=== PATIENT | male | born 1970 | race African-American/Black ===

== ENCOUNTER 2018-11-30 10:52 | Emergency (ER) | payer SELFPAY ==
[~2018-11-30] VITALS: Ht 180.3 cm; Wt 75.0 kg
[2018-11-30 10:59] VITALS: BP 157/109
== END 2018-11-30 15:01 | disposition left against medical advice (07) ==
LOC: ER 10:52
DX: Z53.21 Procedure and treatment not carried out due to patient leaving prior to being seen by health care provider (principal); R07.89 Other chest pain
CPT/HCPCS: 93005

== ENCOUNTER 2018-12-26 10:52 | Emergency (ER) | payer MEDICAID ==
[~2018-12-26] VITALS: Ht 180.3 cm; Wt 77.0 kg
[2018-12-26] MEDS ORDERED: HYDROCODONE/ACETAMINOPHEN 5/325MG TABLET PO STA (13:00)
[2018-12-26 14:16] VITALS: BP 124/86
== END 2018-12-26 14:17 | disposition home or self-care (01) ==
LOC: ER 11:18
DX: M54.5 Low back pain (principal); M54.2 Cervicalgia; M25.512 Pain in left shoulder; M25.511 Pain in right shoulder; V49.59XA Passenger injured in collision with other motor vehicles in traffic accident, initial encounter; Y93.89 Activity, other specified; Y92.410 Unspecified street and highway as the place of occurrence of the external cause
CPT/HCPCS: 72100; 73030; 99283

== ENCOUNTER 2019-08-21 12:44 | Emergency (ER) | payer MEDICAID ==
[~2019-08-21] VITALS: Ht 185.4 cm; Wt 71.0 kg
[2019-08-21] MEDS ORDERED: CLONIDINE 0.2MG TABLET PO ONE ×2 (13:30→14:00)
[2019-08-21] MEDS ORDERED: AMLODIPINE 5MG TABLET PO ONE (14:00)
[2019-08-21 14:15] VITALS: BP 188/90
[2019-08-21 14:55] LABS: CHLORIDE 104 mEq/L (98-107)
[2019-08-21 15:32] LABS: BASOPHILS % 0.6 % (0.0-2.0); EOSINOPHILS % 0.5 % (0.0-5.0); HEMATOCRIT. 41.7 % (42.0-52.0); HEMOGLOBIN. 14.1 g/dL (14.0-18.0); LYMPHOCYTES % 21.7 % (20.0-50.0); MEAN CORPUSCULAR HEMOGLOBIN 32.4 pg (28.0-32.0); MEAN PLATELET VOLUME 10.5 fl (7.4-10.4); MONOCYTES % 3.8 % (2.0-8.0); NEUTROPHILS % 73.4 % (40.0-76.0); PLATELET 142 x1000/uL (130-400); RED BLOOD CELL COUNT 4.35 mill/uL (4.7-6.1); RED CELL DISTRIBUTION WIDTH 14.6 % (11.6-14.6)
== END 2019-08-21 14:50 | disposition left against medical advice (07) ==
LOC: ER 13:06 → CANBEDREQ 18:38
DX: I13.2 Hypertensive heart and chronic kidney disease with heart failure and with stage 5 chronic kidney disease, or end stage renal disease (principal); I50.43 Acute on chronic combined systolic (congestive) and diastolic (congestive) heart failure; I50.84 End stage heart failure; N18.6 End stage renal disease; Z91.14 Patient's other noncompliance with medication regimen; Z86.73 Personal history of transient ischemic attack (TIA), and cerebral infarction without residual deficits; I25.2 Old myocardial infarction; Z99.2 Dependence on renal dialysis
CPT/HCPCS: 36415; 71045; 83605; 83880; 84484; 85651; 93005; 99284

== ENCOUNTER 2020-12-09 23:56 | Inpatient (IN) | payer MEDICAID ==
[~2020-12-09] VITALS: Ht 160 cm; Wt 64.4 kg
[2020-12-10] VITALS (7 sets, daily range): BP systolic 116–168; BP diastolic 82–124
[2020-12-10] MEDS ORDERED: METHYLPREDNISOLONE SOD SUCC 125 MG/2 ML VIAL IV STA (00:34)
[2020-12-10] MEDS ORDERED: ALBUTEROL (0.083%) 2.5MG/3ML NEB HHN STA (00:34)
[2020-12-10] MEDS ORDERED: IPRATROPIUM BROMIDE (0.02%) 0.5MG/2.5ML NEB HHN STA (00:34)
[2020-12-10 00:51] LABS: BASOPHILS % 0.7 % (0.0-2.0); EOSINOPHILS % 3.7 % (0.0-5.0); LYMPHOCYTES % 20.5 % (20.0-50.0); MEAN CORPUSCULAR HEMOGLOBIN 30.6 pg (28.0-32.0); MEAN CORPUSCULAR VOLUME 92.2 fL (80.0-94.0); MONOCYTES % 6.2 % (2.0-8.0); NEUTROPHILS % 68.9 % (40.0-76.0); PLATELET 165 x1000/uL (130-400); RED BLOOD CELL COUNT 3.91 mill/uL (4.7-6.1); RED CELL DISTRIBUTION WIDTH 14.6 % (11.6-14.6)
[2020-12-10 00:55] LABS: CHLORIDE 111 mEq/L (98-107)
[2020-12-10 01:09] LABS: BG BASE EXCESS -0.6 mmol/L (-2.0-2.0); BG DEOXYHEMOGLOBIN 1.5 % (0.0-5.0); BG FRACTION INSPIRED OXYGEN 100; BG HCO3 ACT 24.3 mmol/L (22.0-26.0); BG METHEMOGLOBIN 0.3 % (0.0-1.5); BG OXYGEN SATURATION 98.5 % (92.0-98.5); BG OXYHEMOGLOBIN 98.2 % (94.0-97.0); BG PCO2 40.7 mmHg (35.0-45.0); BG PH 7.393 (7.350-7.450); BG PO2 140.8 mmHg (75.0-100.0); BG SAMPLE SITE RIGHT RADIAL; BG TOTAL HEMOGLOBIN 11.8 g/dL (12.0-18.0); BG VENT MODE MASK - NRB
[2020-12-10] MEDS ORDERED: NITROGLYCERIN OINT 1GM/INCH UDPKT TD SCH (02:00)
[2020-12-10] MEDS ORDERED: FUROSEMIDE 40MG/4ML VIAL IVP SCH (02:00)
[2020-12-10] MEDS ORDERED: HYDRALAZINE 20MG/ML VIAL IV ONE (04:00)
[2020-12-10] MEDS ORDERED: CLONIDINE 0.1MG TABLET PO SCH (07:00)
[2020-12-10] MEDS ORDERED: ONDANSETRON HCL 4MG/2ML INJ IV PRN (09:00)
[2020-12-10] MEDS ORDERED: ACETAMINOPHEN 325MG TABLET PO PRN (09:00)
[2020-12-10] MEDS: AMLODIPINE 10MG TABLET PO SCH (09:01)
[2020-12-10] MEDS: TRAMADOL 50MG TABLET PO PRN ×2 (09:01→17:36)
[2020-12-10] MEDS: ENOXAPARIN 40MG/0.4ML SYR SUBCUT SCH (09:02)
[2020-12-10] MEDS: FUROSEMIDE 40MG/4ML VIAL IVP SCH ×2 (09:05→16:46)
[2020-12-10 12:05] LABS: *AMPHETAMINES SCREEN URINE NEGATIVE (NEGATIVE); *BARBITURATES SCREEN URINE NEGATIVE (NEGATIVE); *BENZODIAZEPINES SCREEN URINE NEGATIVE (NEGATIVE); *COCAINE SCREEN URINE PRESUMTIVE POSITIVE (NEGATIVE); METHADONE URINE SCREEN NEGATIVE (NEGATIVE); OPIATES URINE SCREEN NEGATIVE (NEGATIVE)
[2020-12-10 12:06] LABS: CANNABINOID URINE SCREEN NEGATIVE (NEGATIVE); PHENCYCLIDINE URINE SCREEN NEGATIVE (NEGATIVE)
[2020-12-10] MEDS ORDERED: HYDROCODONE/ACETAMINOPHEN 5/325MG TABLET PO PRN (12:30)
[2020-12-10] MEDS ORDERED: CLONIDINE 0.1MG TABLET PO PRN (12:30)
[2020-12-10] MEDS: LOSARTAN POTASSIUM 50 MG TABLET PO SCH (16:09)
[2020-12-10] MEDS ORDERED: IPRATROPIUM/ALBUTEROL 0.5-3(2.5)MG/3ML NEB HHN PRN (16:15)
[2020-12-10] MEDS: CARVEDILOL 12.5MG TABLET PO SCH ×2 (17:36→21:09)
[2020-12-10] MEDS: HYDRALAZINE HCL 50MG TABLET PO SCH (21:10)
[2020-12-11] VITALS: BP 112/80
[2020-12-11 04:00] VITALS: BP 121/88
[2020-12-11 07:13] LABS: BASOPHILS % 0.2 % (0.0-2.0); EOSINOPHILS % 0.5 % (0.0-5.0); HEMATOCRIT. 38.5 % (42.0-52.0); HEMOGLOBIN. 12.7 g/dL (14.0-18.0); MEAN CORPUSCULAR HEMOGLOBIN 30.3 pg (28.0-32.0); MEAN PLATELET VOLUME 9.4 fl (7.4-10.4); MONOCYTES % 5.2 % (2.0-8.0); NEUTROPHILS % 82.1 % (40.0-76.0); PLATELET 193 x1000/uL (130-400); RED BLOOD CELL COUNT 4.19 mill/uL (4.7-6.1); RED CELL DISTRIBUTION WIDTH 14.6 % (11.6-14.6)
[2020-12-11 07:39] LABS: CHLORIDE 99 mEq/L (98-107)
[2020-12-11 08:00] VITALS: BP 134/100
[2020-12-11] MEDS: AMLODIPINE 10MG TABLET PO SCH (08:35)
[2020-12-11] MEDS: HYDRALAZINE HCL 50MG TABLET PO SCH (08:35)
[2020-12-11] MEDS: LOSARTAN POTASSIUM 50 MG TABLET PO SCH (08:35)
[2020-12-11] MEDS: FUROSEMIDE 40MG/4ML VIAL IVP SCH ×2 (08:35→17:00)
[2020-12-11] MEDS: ENOXAPARIN 40MG/0.4ML SYR SUBCUT SCH (08:36)
[2020-12-11] MEDS: CARVEDILOL 12.5MG TABLET PO SCH (08:36)
[2020-12-11 12:00] VITALS: BP 133/98
[2020-12-11] MEDS ORDERED: FLUT1DIS3 INH (13:31)
[2020-12-11] MEDS ORDERED: COR12 PO (13:31)
[2020-12-11] MEDS ORDERED: HYDR-4135 PO (13:31)
[2020-12-11] MEDS ORDERED: IPRA3AMP9 NEB (13:31)
[2020-12-11] MEDS ORDERED: LOSA50TA3 PO (13:31)
[2020-12-11] MEDS ORDERED: ALBU18HF2 IH (13:31)
[2020-12-11] MEDS ORDERED: FURO-151 MT (13:31)
[2020-12-11 16:00] VITALS: BP 128/99
[2020-12-11 16:52] VITALS: BP 134/100
[2020-12-11] MEDS ORDERED: CARVEDILOL 12.5MG TABLET PO SCH (21:00)
[2020-12-12] MEDS ORDERED: LOSARTAN POTASSIUM 50 MG TABLET PO SCH (09:00)
== END 2020-12-11 18:16 | disposition home or self-care (01) | DRG 133 ==
LOC: ER 23:56 → 6WST 12-10 03:34 → ENRESERV 12-10 07:21
PROVIDERS: ADMIT Internal Medicine; ATTEND Internal Medicine
DX: J96.00 Acute respiratory failure, unspecified whether with hypoxia or hypercapnia (principal); I11.0 Hypertensive heart disease with heart failure; I50.23 Acute on chronic systolic (congestive) heart failure; N17.0 Acute kidney failure with tubular necrosis; E43 Unspecified severe protein-calorie malnutrition; I42.9 Cardiomyopathy, unspecified; F14.90 Cocaine use, unspecified, uncomplicated; F17.210 Nicotine dependence, cigarettes, uncomplicated; E87.8 Other disorders of electrolyte and fluid balance, not elsewhere classified; J44.9 Chronic obstructive pulmonary disease, unspecified; D64.9 Anemia, unspecified; E87.5 Hyperkalemia; R74.01 Elevation of levels of liver transaminase levels; I25.10 Atherosclerotic heart disease of native coronary artery without angina pectoris; I27.20 Pulmonary hypertension, unspecified; Z86.73 Personal history of transient ischemic attack (TIA), and cerebral infarction without residual deficits; Z68.25 Body mass index [BMI] 25.0-25.9, adult; Z91.19 Patient's noncompliance with other medical treatment and regimen; Z71.51 Drug abuse counseling and surveillance of drug abuser
CPT/HCPCS: 36415; 36600; 71045; 80048; 80053; 80061; 80305; 82375; 82805; 82962; 83605; 83880; 84443; 84484; 85025; 85379; 93005; 93306; 93970; 94640; 99291; J0360; J1650; J1940; J2930

== ENCOUNTER 2021-04-03 17:18 | Inpatient (IN) | payer MEDICAID ==
[~2021-04-03] VITALS: Ht 172.7 cm; Wt 64.4 kg
[~2021-04-03 17:18] MED LIST: ALBU18HF2 IH; COR12 PO; FLUT1DIS3 INH; FURO-151 MT; HYDR-4135 PO; IPRA3AMP9 NEB; LOSA50TA3 PO
[2021-04-03] MEDS ORDERED: MORPHINE SULFATE 4 MG/ML CPJ (NOT FOR IM USE) IV STA (17:29)
[2021-04-03] MEDS ORDERED: ASPIRIN 81MG TABLET PO ONE (17:30)
[2021-04-03] MEDS ORDERED: CEFTRIAXONE 1 G PREMIX 50 ML IV ONE (17:30)
[2021-04-03] MEDS ORDERED: FUROSEMIDE 40MG/4ML VIAL IV ONE (17:30)
[2021-04-03] MEDS ORDERED: AZITHROMYCIN 500 MG in DEXT 5% WATER 250 ML IV SCH (17:30)
[2021-04-03] MEDS ORDERED: NITROGLYCERIN 50MG PREMIX 250 ML IV ONE (17:30)
[2021-04-03 17:44] LABS: BASOPHILS % 1.3 % (0.0-2.0); EOSINOPHILS % 2.6 % (0.0-5.0); HEMATOCRIT. 39.2 % (42.0-52.0); LYMPHOCYTES % 27.8 % (20.0-50.0); MEAN CORPUSCULAR HEMOGLOBIN 29.5 pg (28.0-32.0); MEAN PLATELET VOLUME 9.2 fl (7.4-10.4); MONOCYTES % 6.8 % (2.0-8.0); NEUTROPHILS % 61.5 % (40.0-76.0); PLATELET 210 x1000/uL (130-400); RED CELL DISTRIBUTION WIDTH 15.5 % (11.6-14.6)
[2021-04-03 17:50] LABS: CHLORIDE 110 mEq/L (98-107)
[2021-04-03 17:54] LABS: ETHANOL BLOOD < 10 mg/dL
[2021-04-03 19:02] LABS: *BARBITURATES SCREEN URINE NEGATIVE (NEGATIVE); *BENZODIAZEPINES SCREEN URINE NEGATIVE (NEGATIVE); *COCAINE SCREEN URINE PRESUMTIVE POSITIVE (NEGATIVE); METHADONE URINE SCREEN NEGATIVE (NEGATIVE); OPIATES URINE SCREEN PRESUMTIVE POSITIVE (NEGATIVE)
[2021-04-03 19:03] LABS: CANNABINOID URINE SCREEN PRESUMTIVE POSITIVE (NEGATIVE); PHENCYCLIDINE URINE SCREEN NEGATIVE (NEGATIVE)
[2021-04-03 19:05] LABS: *AMPHETAMINES SCREEN URINE NEGATIVE (NEGATIVE)
[2021-04-04] VITALS (41 sets, daily range): BP systolic 111–172; BP diastolic 72–151
[2021-04-04] MEDS ORDERED: NITROGLYCERIN 50MG PREMIX 250 ML IV PRN (02:00)
[2021-04-04] MEDS ORDERED: MORPHINE SULFATE 2 MG/ML CPJ (NOT FOR IM USE) IV PRN (03:30)
[2021-04-04 05:26] LABS: BASOPHILS % 0.6 % (0.0-2.0); EOSINOPHILS % 3.2 % (0.0-5.0); HEMATOCRIT. 37.1 % (42.0-52.0); HEMOGLOBIN. 12.1 g/dL (14.0-18.0); LYMPHOCYTES % 24.6 % (20.0-50.0); MEAN CORPUSCULAR VOLUME 89.2 fL (80.0-94.0); MEAN PLATELET VOLUME 9.2 fl (7.4-10.4); NEUTROPHILS % 61.6 % (40.0-76.0); PLATELET 182 x1000/uL (130-400); RED BLOOD CELL COUNT 4.16 mill/uL (4.7-6.1); RED CELL DISTRIBUTION WIDTH 15.9 % (11.6-14.6)
[2021-04-04 05:31] LABS: CHLORIDE 108 mEq/L (98-107)
[2021-04-04] MEDS: ENOXAPARIN 40MG/0.4ML SYR SUBCUT SCH (08:06)
[2021-04-04] MEDS: FUROSEMIDE 100MG/10ML VIAL IVP SCH ×2 (08:06→21:22)
[2021-04-04] MEDS: LOSARTAN POTASSIUM 50 MG TABLET PO SCH (08:07)
[2021-04-04] MEDS: CARVEDILOL 12.5MG TABLET PO SCH ×2 (08:07→21:59)
[2021-04-04] MEDS: HYDRALAZINE HCL 50MG TABLET PO SCH ×3 (08:07→21:22)
[2021-04-04] MEDS ORDERED: IPRATROPIUM/ALBUTEROL 0.5-3(2.5)MG/3ML NEB HHN PRN (10:15)
[2021-04-04] MEDS: HYDROCODONE/ACETAMINOPHEN 5/325MG TABLET PO PRN ×2 (10:43→21:23)
[2021-04-04] MEDS: PREDNISONE 20MG TABLET PO SCH (10:44)
[2021-04-04 11:01] LABS: CREATINE KINASE MB FRACTION 4.1 ng/mL (0.5-3.6)
[2021-04-04] MEDS: IPRATROPIUM/ALBUTEROL 0.5-3(2.5)MG/3ML NEB HHN SCH (21:21)
[2021-04-04] MEDS: BUDESONIDE 0.5MG/2ML NEB HHN SCH (21:21)
[2021-04-05] VITALS: BP 119/86
[2021-04-05] MEDS: HYDROCODONE/ACETAMINOPHEN 5/325MG TABLET PO PRN (01:41)
[2021-04-05 04:00] VITALS: BP 137/94
[2021-04-05] MEDS: HYDRALAZINE HCL 50MG TABLET PO SCH ×3 (06:44→21:50)
[2021-04-05 08:00] VITALS: BP 124/86
[2021-04-05] MEDS: BUDESONIDE 0.5MG/2ML NEB HHN SCH ×2 (08:52→20:25)
[2021-04-05] MEDS: IPRATROPIUM/ALBUTEROL 0.5-3(2.5)MG/3ML NEB HHN SCH ×2 (08:52→20:25)
[2021-04-05] MEDS: PREDNISONE 20MG TABLET PO SCH (08:59)
[2021-04-05] MEDS: ENOXAPARIN 40MG/0.4ML SYR SUBCUT SCH (08:59)
[2021-04-05] MEDS: CARVEDILOL 12.5MG TABLET PO SCH ×2 (08:59→21:50)
[2021-04-05] MEDS: LOSARTAN POTASSIUM 50 MG TABLET PO SCH (08:59)
[2021-04-05] MEDS: FUROSEMIDE 100MG/10ML VIAL IVP SCH ×2 (08:59→21:50)
[2021-04-05 12:00] VITALS: BP 108/75
[2021-04-05] MEDS ORDERED: ONDANSETRON HCL 4MG/2ML INJ IV PRN (12:45)
[2021-04-05] MEDS ORDERED: LOSA50TA3 PO (15:31)
[2021-04-05] MEDS ORDERED: ALBU18HF2 IH (15:31)
[2021-04-05] MEDS ORDERED: FLUT1DIS3 INH (15:31)
[2021-04-05] MEDS ORDERED: COR12 PO (15:31)
[2021-04-05] MEDS ORDERED: HYDR-4135 PO (15:31)
[2021-04-05] MEDS ORDERED: FURO-151 MT (15:31)
[2021-04-05] MEDS ORDERED: POTA20TA82 MT (15:31)
[2021-04-05] MEDS ORDERED: P20 PO (15:31)
[2021-04-05 16:00] VITALS: BP 109/74
[2021-04-05 20:00] VITALS: BP 114/76
[2021-04-06] VITALS: BP 116/72
[2021-04-06] MEDS: IPRATROPIUM/ALBUTEROL 0.5-3(2.5)MG/3ML NEB HHN SCH ×2 (01:40→07:55)
[2021-04-06 04:00] VITALS: BP 145/78
[2021-04-06] MEDS: HYDRALAZINE HCL 50MG TABLET PO SCH (05:32)
[2021-04-06] MEDS: BUDESONIDE 0.5MG/2ML NEB HHN SCH (07:55)
[2021-04-06 08:00] VITALS: BP 108/80
[2021-04-06 08:23] VITALS: BP 145/78
[2021-04-06] MEDS: CARVEDILOL 12.5MG TABLET PO SCH (08:45)
[2021-04-06] MEDS: LOSARTAN POTASSIUM 50 MG TABLET PO SCH (08:45)
[2021-04-06] MEDS: FUROSEMIDE 100MG/10ML VIAL IVP SCH (09:00)
[2021-04-06] MEDS: ENOXAPARIN 40MG/0.4ML SYR SUBCUT SCH (09:01)
[2021-04-06] MEDS: PREDNISONE 20MG TABLET PO SCH (09:02)
== END 2021-04-06 09:45 | disposition home or self-care (01) | DRG 190 ==
LOC: ER 17:18 → MICUSO 19:19 → EDBEDREQTM 19:34 → EDBEDREQ 19:34 → ENRESERV 04-04 01:26 → 5WST 04-04 11:00
PROVIDERS: ADMIT Internal Medicine; ATTEND Internal Medicine
PROC: 5A09357 Assistance with Respiratory Ventilation, Less than 24 Consecutive Hours, Continuous Positive Airway Pressure (ICD-10-PCS; principal; 2021-04-03)
DX: I21.4 Non-ST elevation (NSTEMI) myocardial infarction (principal); J96.00 Acute respiratory failure, unspecified whether with hypoxia or hypercapnia; N17.0 Acute kidney failure with tubular necrosis; I50.23 Acute on chronic systolic (congestive) heart failure; E44.0 Moderate protein-calorie malnutrition; N18.9 Chronic kidney disease, unspecified; I13.0 Hypertensive heart and chronic kidney disease with heart failure and stage 1 through stage 4 chronic kidney disease, or unspecified chronic kidney disease; D64.9 Anemia, unspecified; E87.8 Other disorders of electrolyte and fluid balance, not elsewhere classified; F12.10 Cannabis abuse, uncomplicated; F14.10 Cocaine abuse, uncomplicated; F17.210 Nicotine dependence, cigarettes, uncomplicated; Z20.822 Contact with and (suspected) exposure to COVID-19; I16.0 Hypertensive urgency; I25.10 Atherosclerotic heart disease of native coronary artery without angina pectoris; I27.29 Other secondary pulmonary hypertension; I42.9 Cardiomyopathy, unspecified; R74.01 Elevation of levels of liver transaminase levels; J44.9 Chronic obstructive pulmonary disease, unspecified; I25.2 Old myocardial infarction; Z91.14 Patient's other noncompliance with medication regimen; Z79.899 Other long term (current) drug therapy; Z71.51 Drug abuse counseling and surveillance of drug abuser; Z71.6 Tobacco abuse counseling
CPT/HCPCS: 36415; 71045; 80048; 80053; 80305; 80320; 82550; 82553; 83605; 83880; 84484; 85025; 86850; 86900; 93005; 93306; 94640; 94660; 99285; C9803; J0456; J0696; J1650; J1940; J2270; J3490; J7060; J7512; J7626; U0003; U0005; G0480

== ENCOUNTER 2021-05-24 01:22 | Inpatient (IN) | payer MEDICAID, OTHER ==
[~2021-05-24] VITALS: Ht 180.3 cm; Wt 665.4 kg
[~2021-05-24 01:22] MED LIST changes: +P20 PO; +POTA20TA82 MT
[2021-05-24] MEDS ORDERED: ALBUTEROL (0.083%) 2.5MG/3ML NEB HHN STA (01:31)
[2021-05-24] MEDS ORDERED: METHYLPREDNISOLONE SOD SUCC 125 MG/2 ML VIAL IV STA (01:31)
[2021-05-24] MEDS ORDERED: IPRATROPIUM BROMIDE (0.02%) 0.5MG/2.5ML NEB HHN STA (01:31)
[2021-05-24] MEDS ORDERED: MAGNESIUM 2 G PREMIX 50 ML IV STA (01:31)
[2021-05-24] MEDS ORDERED: SODIUM CHLORIDE 0.9% 1,000 ML IV ONE (01:45)
[2021-05-24 02:34] LABS: BASOPHILS % 0.5 % (0.0-2.0); HEMATOCRIT. 40.1 % (42.0-52.0); LYMPHOCYTES % 33.5 % (20.0-50.0); MEAN CORPUSCULAR HEMOGLOBIN 28.6 pg (28.0-32.0); MEAN CORPUSCULAR VOLUME 88.3 fL (80.0-94.0); MEAN PLATELET VOLUME 9.6 fl (7.4-10.4); MONOCYTES % 10.2 % (2.0-8.0); NEUTROPHILS % 53.8 % (40.0-76.0); PLATELET 126 x1000/uL (130-400); RED BLOOD CELL COUNT 4.55 mill/uL (4.7-6.1); RED CELL DISTRIBUTION WIDTH 15.6 % (11.6-14.6)
[2021-05-24 02:35] LABS: CHLORIDE 111 mEq/L (98-107)
[2021-05-24] MEDS ORDERED: FUROSEMIDE 100MG/10ML VIAL IVP SCH (03:15)
[2021-05-24] MEDS ORDERED: HEPARIN 5000 UNITS/ML VIAL IV SCH ×2 (03:15→03:30)
[2021-05-24] MEDS ORDERED: ASPIRIN 325MG EC TABLET PO SCH (03:15)
[2021-05-24] MEDS ORDERED: HEPARIN 25,000 UNITS PREMIX 250 ML IV PRN (03:15)
[2021-05-24 03:37] LABS: PARTIAL THROMBOPLASTIN TIME 27.4 sec (23.4-31.0); PROTHROMBIN TIME 11.1 sec (9.6-11.0)
[2021-05-24] MEDS: ASPIRIN 81MG TABLET PO SCH (09:41)
[2021-05-24] MEDS: AMLODIPINE 10MG TABLET PO SCH (09:41)
[2021-05-24] MEDS: FUROSEMIDE 40MG/4ML VIAL IVP SCH ×2 (09:41→18:46)
[2021-05-24] MEDS: METHYLPREDNISOLONE SOD SUCC 40 MG/ML VIAL IV SCH ×3 (10:34→21:19)
[2021-05-24] MEDS: IPRATROPIUM/ALBUTEROL 0.5-3(2.5)MG/3ML NEB HHN SCH ×3 (12:45→20:32)
[2021-05-24 16:30] VITALS: BP 139/101
[2021-05-24 17:30] VITALS: BP 139/101
[2021-05-24 20:00] VITALS: BP 132/93
[2021-05-24] MEDS: FAMOTIDINE 20MG TABLET PO SCH (21:19)
[2021-05-24 23:58] VITALS: BP 121/85
[2021-05-25] MEDS: IPRATROPIUM/ALBUTEROL 0.5-3(2.5)MG/3ML NEB HHN SCH ×6 (00:16→21:05)
[2021-05-25 04:00] VITALS: BP 123/91
[2021-05-25] MEDS: FUROSEMIDE 40MG/4ML VIAL IVP SCH ×2 (06:31→17:16)
[2021-05-25] MEDS: METHYLPREDNISOLONE SOD SUCC 40 MG/ML VIAL IV SCH ×3 (06:31→21:02)
[2021-05-25 07:58] VITALS: BP 138/93
[2021-05-25] MEDS: ASPIRIN 81MG TABLET PO SCH (09:40)
[2021-05-25] MEDS: METOPROLOL TARTRATE 25MG TABLET PO SCH ×2 (09:41→21:02)
[2021-05-25] MEDS: AMLODIPINE 10MG TABLET PO SCH (09:41)
[2021-05-25 09:52] LABS: HEMATOCRIT. 45.4 % (42.0-52.0); HEMOGLOBIN. 14.9 g/dL (14.0-18.0); MEAN CORPUSCULAR HEMOGLOBIN 28.9 pg (28.0-32.0); MEAN CORPUSCULAR VOLUME 88.1 fL (80.0-94.0); MEAN PLATELET VOLUME 9.9 fl (7.4-10.4); PLATELET 151 x1000/uL (130-400); RED BLOOD CELL COUNT 5.15 mill/uL (4.7-6.1); RED CELL DISTRIBUTION WIDTH 16.1 % (11.6-14.6)
[2021-05-25 12:00] VITALS: BP 124/90
[2021-05-25 16:30] VITALS: BP 117/81
[2021-05-25 18:04] LABS: *AMPHETAMINES SCREEN URINE NEGATIVE (NEGATIVE); *BARBITURATES SCREEN URINE NEGATIVE (NEGATIVE); *BENZODIAZEPINES SCREEN URINE NEGATIVE (NEGATIVE); *COCAINE SCREEN URINE PRESUMTIVE POSITIVE (NEGATIVE)
[2021-05-25 18:05] LABS: CANNABINOID URINE SCREEN PRESUMTIVE POSITIVE (NEGATIVE); METHADONE URINE SCREEN NEGATIVE (NEGATIVE); OPIATES URINE SCREEN NEGATIVE (NEGATIVE); PHENCYCLIDINE URINE SCREEN NEGATIVE (NEGATIVE)
[2021-05-25 19:45] VITALS: BP 117/80
[2021-05-25] MEDS: FAMOTIDINE 20MG TABLET PO SCH (21:02)
[2021-05-25 23:34] VITALS: BP 113/71
[2021-05-26] MEDS: IPRATROPIUM/ALBUTEROL 0.5-3(2.5)MG/3ML NEB HHN SCH ×5 (00:50→16:00)
[2021-05-26] MEDS ORDERED: IPRATROPIUM/ALBUTEROL 0.5-3(2.5)MG/3ML NEB ONE (00:54)
[2021-05-26] MEDS ORDERED: FAMOTIDINE 20MG TABLET PO SCH ×2 (02:00→21:00)
[2021-05-26] MEDS ORDERED: METHYLPREDNISOLONE SOD SUCC 40 MG/ML VIAL IV SCH (02:00)
[2021-05-26] MEDS ORDERED: METOPROLOL TARTRATE 25MG TABLET PO SCH ×2 (02:00→09:00)
[2021-05-26 04:00] VITALS: BP 120/85
[2021-05-26] MEDS ORDERED: FUROSEMIDE 40MG/4ML VIAL IVP SCH (06:00)
[2021-05-26] MEDS: METHYLPREDNISOLONE SOD SUCC 40 MG/ML VIAL IV SCH ×2 (06:32→13:52)
[2021-05-26 08:10] VITALS: BP 128/94
[2021-05-26 08:30] VITALS: BP 122/78
[2021-05-26] MEDS ORDERED: ASPIRIN 81MG TABLET PO SCH (09:00)
[2021-05-26] MEDS ORDERED: AMLODIPINE 10MG TABLET PO SCH (09:00)
[2021-05-26 12:07] VITALS: BP 116/82
[2021-05-26] MEDS ORDERED: P20 PO (12:33)
[2021-05-26] MEDS ORDERED: FURO-151 MT (12:33)
[2021-05-26] MEDS ORDERED: FLUT1DIS3 INH (12:33)
[2021-05-26] MEDS ORDERED: COR12 PO (12:33)
[2021-05-26] MEDS ORDERED: ALBU18HF2 IH (12:33)
[2021-05-26] MEDS ORDERED: LOSA25TA26 MT (12:33)
[2021-05-26] MEDS ORDERED: POTA20TA82 MT (12:33)
[2021-05-26 14:08] LABS: PLATELET ESTIMATE NORMAL
[2021-05-26 14:10] VITALS: BP 116/82
== END 2021-05-26 17:16 | disposition home or self-care (01) | DRG 194 ==
LOC: ER 01:22 → MICUSO 04:10 → 6WST 15:10 → UNDODISIN 05-25 18:11
PROVIDERS: ADMIT Internal Medicine; ATTEND Internal Medicine
PROC: 5A09357 Assistance with Respiratory Ventilation, Less than 24 Consecutive Hours, Continuous Positive Airway Pressure (ICD-10-PCS; principal; 2021-05-24)
DX: I13.0 Hypertensive heart and chronic kidney disease with heart failure and stage 1 through stage 4 chronic kidney disease, or unspecified chronic kidney disease (principal); N17.9 Acute kidney failure, unspecified; I27.20 Pulmonary hypertension, unspecified; E44.0 Moderate protein-calorie malnutrition; Z68.45 Body mass index [BMI] 70 or greater, adult; J44.1 Chronic obstructive pulmonary disease with (acute) exacerbation; I42.9 Cardiomyopathy, unspecified; I50.23 Acute on chronic systolic (congestive) heart failure; E87.8 Other disorders of electrolyte and fluid balance, not elsewhere classified; F12.90 Cannabis use, unspecified, uncomplicated; Z20.822 Contact with and (suspected) exposure to COVID-19; F14.90 Cocaine use, unspecified, uncomplicated; N18.9 Chronic kidney disease, unspecified; Z82.49 Family history of ischemic heart disease and other diseases of the circulatory system; Z79.899 Other long term (current) drug therapy; Z71.51 Drug abuse counseling and surveillance of drug abuser; R79.89 Other specified abnormal findings of blood chemistry
CPT/HCPCS: 36415; 71045; 80048; 80053; 80305; 83880; 84484; 85025; 87426; 93005; 94644; 99285; J1644; J1940; J2920; J2930; J3475

== ENCOUNTER 2021-06-26 21:02 | Inpatient (IN) | payer OTHER ==
[~2021-06-26] VITALS: Ht 172.7 cm; Wt 69.6 kg
[~2021-06-26 21:02] MED LIST changes: -HYDR-4135 PO; +LOSA25TA26 MT; -LOSA50TA3 PO
[2021-06-26] MEDS ORDERED: NITROGLYCERIN 0.4MG TABLET SL SL PRN (21:15)
[2021-06-26] MEDS ORDERED: FUROSEMIDE 40MG/4ML VIAL IV ONE (21:15)
[2021-06-26 22:07] LABS: BG BASE EXCESS -1.9 mmol/L (-2.0-2.0); BG CARBOXYHEMOGLOBIN 0.7 % (0.5-1.5); BG DEOXYHEMOGLOBIN 0.9 % (0.0-5.0); BG FRACTION INSPIRED OXYGEN 50; BG HCO3 ACT 21.8 mmol/L (22.0-26.0); BG METHEMOGLOBIN 0.3 % (0.0-1.5); BG OXYGEN SATURATION 99.1 % (92.0-98.5); BG OXYHEMOGLOBIN 98.1 % (94.0-97.0); BG PCO2 33.9 mmHg (35.0-45.0); BG PH 7.426 (7.350-7.450); BG PO2 197.7 mmHg (75.0-100.0); BG SAMPLE SITE RIGHT RADIAL; BG TOTAL HEMOGLOBIN 12.4 g/dL (12.0-18.0); BG TOTAL RESPIRATORY RATE 26 b/min; BG VENT MODE MASK - BIPAP
[2021-06-26 22:14] LABS: BASOPHILS % 0.9 % (0.0-2.0); HEMATOCRIT. 35.5 % (42.0-52.0); HEMOGLOBIN. 11.8 g/dL (14.0-18.0); LYMPHOCYTES % 33.5 % (20.0-50.0); MEAN CORPUSCULAR HEMOGLOBIN 29.1 pg (28.0-32.0); MEAN CORPUSCULAR VOLUME 87.9 fL (80.0-94.0); MEAN PLATELET VOLUME 8.7 fl (7.4-10.4); NEUTROPHILS % 50.6 % (40.0-76.0); PLATELET 158 x1000/uL (130-400); RED BLOOD CELL COUNT 4.04 mill/uL (4.7-6.1); RED CELL DISTRIBUTION WIDTH 17.4 % (11.6-14.6)
[2021-06-26 22:20] LABS: CHLORIDE 111 mEq/L (98-107); PROTHROMBIN TIME 10.4 sec (9.6-11.0)
[2021-06-26 23:08] LABS: CLARITY URINE CLEAR (CLEAR); COLOR URINE YELLOW (YELLOW); KETONES URINE NEGATIVE (NEGATIVE); LEUKOCYTE ESTERASE URINE NEGATIVE (NEGATIVE); NITRITE URINE NEGATIVE (NEGATIVE); OCCULT BLOOD URINE NEGATIVE (NEGATIVE); PROTEIN URINE TRACE (NEGATIVE); SPECIFIC GRAVITY URINE 1.009 (1.005-1.030); UROBILINOGEN URINE 0.2 E.U./dL (0.2-1.0)
[2021-06-26] MEDS ORDERED: ASPIRIN 81MG TABLET PO ONE (23:15)
[2021-06-27] MEDS ORDERED: CLONIDINE 0.1MG TABLET PO PRN (06:30)
[2021-06-27 08:00] VITALS: BP 167/129
[2021-06-27 08:40] VITALS: BP 167/129
[2021-06-27] MEDS ORDERED: ACETAMINOPHEN 325MG TABLET PO PRN (09:00)
[2021-06-27] MEDS ORDERED: IPRATROPIUM/ALBUTEROL 0.5-3(2.5)MG/3ML NEB HHN PRN (09:00)
[2021-06-27] MEDS ORDERED: ONDANSETRON HCL 4MG/2ML INJ IV PRN (09:00)
[2021-06-27] MEDS: LOSARTAN POTASSIUM 50 MG TABLET PO SCH (09:51)
[2021-06-27] MEDS: ASPIRIN 81MG TABLET PO SCH (09:51)
[2021-06-27] MEDS: FUROSEMIDE 40MG/4ML VIAL IVP SCH ×2 (09:51→18:15)
[2021-06-27] MEDS: ENOXAPARIN 40MG/0.4ML SYR SUBCUT SCH (09:52)
[2021-06-27] MEDS ORDERED: *PATIENT'S OWN MEDICATION STORAGE XX SCH (10:45)
[2021-06-27 11:20] LABS: CREATINE KINASE MB FRACTION 3.7 ng/mL (0.5-3.6)
[2021-06-27 12:00] VITALS: BP 146/107
[2021-06-27 16:00] VITALS: BP 130/100
[2021-06-27 20:00] VITALS: BP 141/104
[2021-06-27] MEDS: CARVEDILOL 6.25 MG TABLET PO SCH (21:45)
[2021-06-28] VITALS: BP 138/103
[2021-06-28 04:00] VITALS: BP 144/104
[2021-06-28 07:46] LABS: CHLORIDE 99 mEq/L (98-107)
[2021-06-28 08:00] VITALS: BP 145/107
[2021-06-28] MEDS: ENOXAPARIN 40MG/0.4ML SYR SUBCUT SCH (09:30)
[2021-06-28] MEDS: ASPIRIN 81MG TABLET PO SCH (09:30)
[2021-06-28] MEDS: LOSARTAN POTASSIUM 50 MG TABLET PO SCH (09:30)
[2021-06-28] MEDS: FUROSEMIDE 40MG/4ML VIAL IVP SCH (09:31)
[2021-06-28] MEDS: CARVEDILOL 6.25 MG TABLET PO SCH (09:31)
[2021-06-28] MEDS ORDERED: FURO-151 MT (11:01)
[2021-06-28] MEDS ORDERED: COR12 PO (11:01)
[2021-06-28] MEDS ORDERED: LOSA25TA26 MT (11:01)
[2021-06-28] MEDS ORDERED: ALBU18HF2 IH (11:01)
[2021-06-28] MEDS ORDERED: FLUT1DIS3 INH (11:01)
[2021-06-28] MEDS ORDERED: POTA20TA82 MT (11:01)
[2021-06-28 11:40] VITALS: BP 145/107
[2021-06-28 12:00] VITALS: BP 99/76
== END 2021-06-28 14:58 | disposition home or self-care (01) | DRG 816 ==
LOC: ER 21:02 → EDBEDREQ 21:16 → 8WST 06-27 00:05 → EDBEDREQSVC 06-27 00:12 → EDBEDREQDT 06-27 00:12 → EDBEDREQ 06-27 00:12 → EDBEDREQTM 06-27 00:12 → EDBEDREQSVC 06-27 06:11 → ENRESERV 06-27 07:42
PROVIDERS: ADMIT Internal Medicine; ATTEND Internal Medicine
DX: T40.5X1A Poisoning by cocaine, accidental (unintentional), initial encounter (principal); J96.01 Acute respiratory failure with hypoxia; I21.4 Non-ST elevation (NSTEMI) myocardial infarction; E44.0 Moderate protein-calorie malnutrition; I27.20 Pulmonary hypertension, unspecified; N17.9 Acute kidney failure, unspecified; I13.0 Hypertensive heart and chronic kidney disease with heart failure and stage 1 through stage 4 chronic kidney disease, or unspecified chronic kidney disease; I50.22 Chronic systolic (congestive) heart failure; D64.9 Anemia, unspecified; E87.8 Other disorders of electrolyte and fluid balance, not elsewhere classified; F14.10 Cocaine abuse, uncomplicated; F17.210 Nicotine dependence, cigarettes, uncomplicated; T40.7X1A Poisoning by cannabis (derivatives), accidental (unintentional), initial encounter; I42.9 Cardiomyopathy, unspecified; Z60.2 Problems related to living alone; J44.1 Chronic obstructive pulmonary disease with (acute) exacerbation; N18.2 Chronic kidney disease, stage 2 (mild); Z82.49 Family history of ischemic heart disease and other diseases of the circulatory system; Z86.73 Personal history of transient ischemic attack (TIA), and cerebral infarction without residual deficits; Z91.19 Patient's noncompliance with other medical treatment and regimen; Y92.89 Other specified places as the place of occurrence of the external cause; Z71.51 Drug abuse counseling and surveillance of drug abuser; Z68.23 Body mass index [BMI] 23.0-23.9, adult; Z79.899 Other long term (current) drug therapy
CPT/HCPCS: 36415; 36600; 71045; 80048; 80053; 81003; 82375; 82550; 82553; 82805; 83880; 84484; 85025; 93005; 93306; 99291; J1650; J1940

== ENCOUNTER 2021-07-09 13:55 | Inpatient (IN) | payer MEDICAID, OTHER ==
[~2021-07-09] VITALS: Ht 177.8 cm; Wt 65.6 kg
[~2021-07-09 13:55] MED LIST changes: -P20 PO
[2021-07-09] MEDS ORDERED: LORAZEPAM 0.5MG TABLET PO ONE (15:30)
[2021-07-09] MEDS ORDERED: ASPIRIN 81MG TABLET PO ONE (15:30)
[2021-07-09] MEDS ORDERED: NITROGLYCERIN 0.4MG TABLET SL SL PRN (15:30)
[2021-07-09 16:31] LABS: BASOPHILS % 0.6 % (0.0-2.0); HEMATOCRIT. 33.1 % (42.0-52.0); HEMOGLOBIN. 11.4 g/dL (14.0-18.0); MEAN CORPUSCULAR VOLUME 87.4 fL (80.0-94.0); MEAN PLATELET VOLUME 8.7 fl (7.4-10.4); MONOCYTES % 10.3 % (2.0-8.0); NEUTROPHILS % 63.1 % (40.0-76.0); PLATELET 175 x1000/uL (130-400); RED BLOOD CELL COUNT 3.79 mill/uL (4.7-6.1); RED CELL DISTRIBUTION WIDTH 17.5 % (11.6-14.6)
[2021-07-09 16:35] LABS: CHLORIDE 109 mEq/L (98-107)
[2021-07-09 16:39] LABS: ETHANOL BLOOD < 10 mg/dL
[2021-07-09] MEDS ORDERED: ENOXAPARIN 80MG/0.8ML SYR SUBCUT ONE (17:30)
[2021-07-09 19:36] LABS: METHADONE URINE SCREEN NEGATIVE (NEGATIVE); OPIATES URINE SCREEN NEGATIVE (NEGATIVE)
[2021-07-09 19:37] LABS: *AMPHETAMINES SCREEN URINE NEGATIVE (NEGATIVE); *BARBITURATES SCREEN URINE NEGATIVE (NEGATIVE); *BENZODIAZEPINES SCREEN URINE NEGATIVE (NEGATIVE); *COCAINE SCREEN URINE PRESUMTIVE POSITIVE (NEGATIVE); CANNABINOID URINE SCREEN PRESUMTIVE POSITIVE (NEGATIVE); PHENCYCLIDINE URINE SCREEN NEGATIVE (NEGATIVE)
[2021-07-09] MEDS ORDERED: CEFTRIAXONE 1 G PREMIX 50 ML IV ONE (20:15)
[2021-07-10] VITALS (10 sets, daily range): BP systolic 134–163; BP diastolic 92–124
[2021-07-10] MEDS ORDERED: MORPHINE SULFATE 2 MG/ML CPJ (NOT FOR IM USE) IV PRN (00:30)
[2021-07-10] MEDS: CLONIDINE 0.1MG TABLET PO PRN ×2 (00:53→05:21)
[2021-07-10] MEDS: ZOLPIDEM TARTRATE 5MG TABLET PO SCH ×2 (01:04→22:21)
[2021-07-10] MEDS ORDERED: NALOXONE HCL 0.4MG/ML VIAL IV PRN (08:45)
[2021-07-10] MEDS ORDERED: ACETAMINOPHEN 325MG TABLET PO PRN (09:45)
[2021-07-10] MEDS ORDERED: ONDANSETRON HCL 4MG TABLET PO SCH (09:45)
[2021-07-10] MEDS: FUROSEMIDE 40MG/4ML VIAL IVP SCH ×2 (11:01→17:21)
[2021-07-10] MEDS ORDERED: LORAZEPAM 2MG/ML CPJ IV PRN (11:30)
[2021-07-10] MEDS ORDERED: TRAMADOL 50MG TABLET PO PRN (11:30)
[2021-07-10] MEDS: GUAIFENESIN-DM 200MG-20MG/10ML UDC PO PRN ×3 (11:42→22:21)
[2021-07-10] MEDS: IPRATROPIUM/ALBUTEROL 0.5-3(2.5)MG/3ML NEB HHN SCH ×2 (13:41→21:42)
[2021-07-10] MEDS ORDERED: ONDANSETRON HCL 4MG/2ML INJ IV PRN (15:00)
[2021-07-10] MEDS ORDERED: CEFTRIAXONE 1 G PREMIX 50 ML IV SCH (15:00)
[2021-07-10] MEDS: LOSARTAN POTASSIUM 50 MG TABLET PO SCH (16:01)
[2021-07-10] MEDS: ENOXAPARIN 40MG/0.4ML SYR SUBCUT SCH (16:01)
[2021-07-10] MEDS: CEFTRIAXONE 1,000 MG in DEXTROSE 5% WATER 50 ML IV SCH (22:21)
[2021-07-11] VITALS (12 sets, daily range): BP systolic 115–169; BP diastolic 48–107
[2021-07-11] MEDS: CLONIDINE 0.1MG TABLET PO PRN (00:06)
[2021-07-11] MEDS: IPRATROPIUM/ALBUTEROL 0.5-3(2.5)MG/3ML NEB HHN SCH ×6 (01:57→21:47)
[2021-07-11] MEDS: FUROSEMIDE 40MG/4ML VIAL IVP SCH ×2 (06:22→16:26)
[2021-07-11] MEDS: AZITHROMYCIN 250 MG TABLET PO SCH (08:13)
[2021-07-11] MEDS: GUAIFENESIN-DM 200MG-20MG/10ML UDC PO PRN (08:13)
[2021-07-11] MEDS: ASPIRIN 81MG TABLET PO SCH (08:14)
[2021-07-11] MEDS: LOSARTAN POTASSIUM 50 MG TABLET PO SCH (08:14)
[2021-07-11 10:14] LABS: BASOPHILS % 0.8 % (0.0-2.0); HEMATOCRIT. 38.9 % (42.0-52.0); HEMOGLOBIN. 12.6 g/dL (14.0-18.0); LYMPHOCYTES % 21.8 % (20.0-50.0); MEAN CORPUSCULAR HEMOGLOBIN 28.9 pg (28.0-32.0); MEAN PLATELET VOLUME 9.1 fl (7.4-10.4); MONOCYTES % 12.7 % (2.0-8.0); NEUTROPHILS % 60.7 % (40.0-76.0); PLATELET 174 x1000/uL (130-400); RED BLOOD CELL COUNT 4.37 mill/uL (4.7-6.1); RED CELL DISTRIBUTION WIDTH 17.5 % (11.6-14.6)
[2021-07-11] MEDS: ZOLPIDEM TARTRATE 5MG TABLET PO SCH (21:42)
[2021-07-11] MEDS: CEFTRIAXONE 1,000 MG in DEXTROSE 5% WATER 50 ML IV SCH (21:43)
[2021-07-11] MEDS: CARVEDILOL 6.25 MG TABLET PO SCH (21:43)
[2021-07-11] MEDS: ENOXAPARIN 40MG/0.4ML SYR SUBCUT SCH (21:44)
[2021-07-12] VITALS (7 sets, daily range): BP systolic 115–147; BP diastolic 73–107
[2021-07-12] MEDS: IPRATROPIUM/ALBUTEROL 0.5-3(2.5)MG/3ML NEB HHN SCH ×3 (02:53→12:07)
[2021-07-12] MEDS: FUROSEMIDE 40MG/4ML VIAL IVP SCH (05:43)
[2021-07-12] MEDS: AZITHROMYCIN 250 MG TABLET PO SCH (09:08)
[2021-07-12] MEDS: ASPIRIN 81MG TABLET PO SCH (09:08)
[2021-07-12] MEDS: CARVEDILOL 6.25 MG TABLET PO SCH (09:09)
[2021-07-12] MEDS: LOSARTAN POTASSIUM 50 MG TABLET PO SCH (09:09)
== END 2021-07-12 14:30 | disposition home or self-care (01) | DRG 194 ==
LOC: ER 13:55 → MICUSO 19:27 → EDBEDREQSVC 20:06 → EDBEDREQ 20:06 → EDBEDREQTM 20:06 → 3WST 07-10 08:39
PROVIDERS: ADMIT Internal Medicine; ATTEND Internal Medicine
DX: I13.0 Hypertensive heart and chronic kidney disease with heart failure and stage 1 through stage 4 chronic kidney disease, or unspecified chronic kidney disease (principal); J96.00 Acute respiratory failure, unspecified whether with hypoxia or hypercapnia; E44.0 Moderate protein-calorie malnutrition; N17.9 Acute kidney failure, unspecified; I50.23 Acute on chronic systolic (congestive) heart failure; J68.0 Bronchitis and pneumonitis due to chemicals, gases, fumes and vapors; I27.20 Pulmonary hypertension, unspecified; I42.9 Cardiomyopathy, unspecified; E87.8 Other disorders of electrolyte and fluid balance, not elsewhere classified; D64.9 Anemia, unspecified; F17.210 Nicotine dependence, cigarettes, uncomplicated; J44.9 Chronic obstructive pulmonary disease, unspecified; N18.2 Chronic kidney disease, stage 2 (mild); F12.10 Cannabis abuse, uncomplicated; F14.10 Cocaine abuse, uncomplicated; Z20.822 Contact with and (suspected) exposure to COVID-19; T59.891A Toxic effect of other specified gases, fumes and vapors, accidental (unintentional), initial encounter; Y92.89 Other specified places as the place of occurrence of the external cause; Z82.49 Family history of ischemic heart disease and other diseases of the circulatory system; Z91.19 Patient's noncompliance with other medical treatment and regimen; Z68.20 Body mass index [BMI] 20.0-20.9, adult; Z79.899 Other long term (current) drug therapy; Z71.51 Drug abuse counseling and surveillance of drug abuser
CPT/HCPCS: 36415; 71045; 80048; 80053; 80305; 80320; 83880; 84484; 85025; 87426; 93005; 94640; 99291; J0696; J1650; J1940; J2060; J2270; J7060; G0480

== ENCOUNTER 2021-08-03 09:12 | Inpatient (IN) | payer MEDICAID, OTHER ==
[~2021-08-03] VITALS: Ht 180.3 cm; Wt 65.3 kg
[2021-08-03 10:35] LABS: CHLORIDE 110 mEq/L (98-107)
[2021-08-03 10:36] LABS: HEMATOCRIT. 37.8 % (42.0-52.0); HEMOGLOBIN. 12.2 g/dL (14.0-18.0); MEAN CORPUSCULAR HEMOGLOBIN 28.9 pg (28.0-32.0); MEAN CORPUSCULAR VOLUME 89.4 fL (80.0-94.0); MEAN PLATELET VOLUME 9.3 fl (7.4-10.4); PLATELET 156 x1000/uL (130-400); RED BLOOD CELL COUNT 4.23 mill/uL (4.7-6.1); RED CELL DISTRIBUTION WIDTH 16.9 % (11.6-14.6)
[2021-08-03 11:51] LABS: PLATELET ESTIMATE NORMAL
[2021-08-03] MEDS ORDERED: ENOXAPARIN 60MG/0.6ML SYR SUBCUT ONE (12:45)
[2021-08-03 12:50] LABS: *AMPHETAMINES SCREEN URINE NEGATIVE (NEGATIVE); *BARBITURATES SCREEN URINE NEGATIVE (NEGATIVE); *BENZODIAZEPINES SCREEN URINE NEGATIVE (NEGATIVE)
[2021-08-03 12:51] LABS: *COCAINE SCREEN URINE PRESUMTIVE POSITIVE (NEGATIVE); CANNABINOID URINE SCREEN PRESUMTIVE POSITIVE (NEGATIVE); METHADONE URINE SCREEN NEGATIVE (NEGATIVE); OPIATES URINE SCREEN NEGATIVE (NEGATIVE); PHENCYCLIDINE URINE SCREEN NEGATIVE (NEGATIVE)
[2021-08-03] MEDS ORDERED: ONDANSETRON HCL 4MG/2ML INJ IV PRN (13:15)
[2021-08-03] MEDS ORDERED: ACETAMINOPHEN 325MG TABLET PO PRN (13:15)
[2021-08-03 16:00] VITALS: BP 165/113
[2021-08-03] MEDS: FUROSEMIDE 40MG/4ML VIAL IVP SCH ×2 (17:47→20:43)
[2021-08-03] MEDS: ASPIRIN 81MG TABLET PO SCH (17:48)
[2021-08-03] MEDS: AMLODIPINE 5MG TABLET PO SCH (17:49)
[2021-08-03 18:00] VITALS: BP 149/89
[2021-08-03 18:30] VITALS: BP 146/82
[2021-08-03 20:00] VITALS: BP 143/95
[2021-08-03] MEDS ORDERED: BENZONATATE 100MG CAPSULE PO PRN (20:30)
[2021-08-03] MEDS: HYDROCODONE/ACETAMINOPHEN 5/325MG TABLET PO PRN (20:44)
[2021-08-03] MEDS ORDERED: NALOXONE HCL 0.4MG/ML VIAL IV PRN (20:45)
[2021-08-03] MEDS: ZOLPIDEM TARTRATE 5MG TABLET PO PRN (21:38)
[2021-08-04] VITALS: BP 135/85
[2021-08-04 04:00] VITALS: BP 142/109
[2021-08-04] MEDS: HYDROCODONE/ACETAMINOPHEN 5/325MG TABLET PO PRN ×3 (04:48→19:58)
[2021-08-04] MEDS: FUROSEMIDE 40MG/4ML VIAL IVP SCH ×2 (05:43→17:47)
[2021-08-04 06:26] LABS: HEMATOCRIT. 40.5 % (42.0-52.0); HEMOGLOBIN. 13.3 g/dL (14.0-18.0); MEAN CORPUSCULAR HEMOGLOBIN 29.2 pg (28.0-32.0); MEAN CORPUSCULAR VOLUME 88.9 fL (80.0-94.0); MEAN PLATELET VOLUME 9.4 fl (7.4-10.4); PLATELET 173 x1000/uL (130-400); RED BLOOD CELL COUNT 4.56 mill/uL (4.7-6.1); RED CELL DISTRIBUTION WIDTH 16.7 % (11.6-14.6)
[2021-08-04 08:00] VITALS: BP 141/111
[2021-08-04] MEDS ORDERED: PNEUMOCOCCAL 23-VAL P-SAC VAC 0.5 ML IM ONE (09:00)
[2021-08-04] MEDS ORDERED: INFLUENZA VACCINE 05/PF 0.5 ML SYRINGE IM ONE (09:00)
[2021-08-04] MEDS: AMLODIPINE 5MG TABLET PO SCH (09:16)
[2021-08-04] MEDS: ASPIRIN 81MG TABLET PO SCH (09:16)
[2021-08-04] MEDS ORDERED: LOSARTAN POTASSIUM 25 MG TABLET PO SCH (11:30)
[2021-08-04 12:00] VITALS: BP 131/105
[2021-08-04] MEDS: ENOXAPARIN 40MG/0.4ML SYR SUBCUT SCH (13:14)
[2021-08-04 13:23] LABS: PLATELET ESTIMATE NORMAL
[2021-08-04 16:00] VITALS: BP 139/107
[2021-08-04] MEDS ORDERED: LOSARTAN POTASSIUM 25 MG TABLET PO NR (17:15)
[2021-08-04 20:00] VITALS: BP 117/87
[2021-08-04] MEDS: ZOLPIDEM TARTRATE 5MG TABLET PO PRN (21:06)
[2021-08-05] VITALS: BP 101/81
[2021-08-05 04:00] VITALS: BP 120/99
[2021-08-05] MEDS: FUROSEMIDE 40MG/4ML VIAL IVP SCH ×2 (05:30→17:07)
[2021-08-05 08:00] VITALS: BP 122/91
[2021-08-05] MEDS: AMLODIPINE 5MG TABLET PO SCH (09:25)
[2021-08-05] MEDS: ASPIRIN 81MG TABLET PO SCH (09:25)
[2021-08-05] MEDS: LOSARTAN POTASSIUM 50 MG TABLET PO SCH ×2 (09:25→17:07)
[2021-08-05 12:00] VITALS: BP 120/81
[2021-08-05] MEDS: ENOXAPARIN 40MG/0.4ML SYR SUBCUT SCH (12:25)
[2021-08-05 16:00] VITALS: BP 111/82
[2021-08-05 20:00] VITALS: BP 120/73
[2021-08-06] VITALS: BP 117/79
[2021-08-06 04:00] VITALS: BP 115/86
[2021-08-06] MEDS: FUROSEMIDE 40MG/4ML VIAL IVP SCH (05:14)
[2021-08-06 08:00] VITALS: BP 109/63
[2021-08-06] MEDS ORDERED: ASPI-1160 PO (08:38)
[2021-08-06] MEDS: ASPIRIN 81MG TABLET PO SCH (08:44)
[2021-08-06] MEDS: LOSARTAN POTASSIUM 50 MG TABLET PO SCH (08:44)
[2021-08-06] MEDS: AMLODIPINE 5MG TABLET PO SCH (08:45)
[2021-08-06 09:46] VITALS: BP 109/73
[2021-08-06] MEDS ORDERED: FUROSEMIDE 40MG TABLET PO SCH (10:45)
[2021-08-06 12:00] VITALS: BP 113/71
[2021-08-06] MEDS: ENOXAPARIN 40MG/0.4ML SYR SUBCUT SCH (12:00)
== END 2021-08-06 14:15 | disposition home or self-care (01) | DRG 190 ==
LOC: ER 09:24 → 7EST 11:16 → ENRESERV 13:18
PROVIDERS: ADMIT Internal Medicine; ATTEND Internal Medicine
DX: I21.4 Non-ST elevation (NSTEMI) myocardial infarction (principal); R65.11 Systemic inflammatory response syndrome (SIRS) of non-infectious origin with acute organ dysfunction; I50.23 Acute on chronic systolic (congestive) heart failure; E44.0 Moderate protein-calorie malnutrition; N17.9 Acute kidney failure, unspecified; I27.20 Pulmonary hypertension, unspecified; I42.9 Cardiomyopathy, unspecified; I51.3 Intracardiac thrombosis, not elsewhere classified; I13.0 Hypertensive heart and chronic kidney disease with heart failure and stage 1 through stage 4 chronic kidney disease, or unspecified chronic kidney disease; E87.8 Other disorders of electrolyte and fluid balance, not elsewhere classified; D64.9 Anemia, unspecified; F12.90 Cannabis use, unspecified, uncomplicated; F14.10 Cocaine abuse, uncomplicated; N18.9 Chronic kidney disease, unspecified; F17.210 Nicotine dependence, cigarettes, uncomplicated; I16.0 Hypertensive urgency; J44.9 Chronic obstructive pulmonary disease, unspecified; I25.2 Old myocardial infarction; Z82.49 Family history of ischemic heart disease and other diseases of the circulatory system; Z86.73 Personal history of transient ischemic attack (TIA), and cerebral infarction without residual deficits; Z91.19 Patient's noncompliance with other medical treatment and regimen; Z68.20 Body mass index [BMI] 20.0-20.9, adult; Z71.51 Drug abuse counseling and surveillance of drug abuser; Z71.6 Tobacco abuse counseling
CPT/HCPCS: 36415; 71045; 71275; 80048; 80053; 80305; 82962; 83880; 84484; 85025; 90686; 90732; 93005; 93306; 99285; J1650; J1940

== ENCOUNTER 2021-10-05 11:22 | Inpatient (IN) | payer MEDICAID, OTHER ==
[~2021-10-05] VITALS: Ht 180.3 cm; Wt 67.6 kg
[~2021-10-05 11:22] MED LIST changes: +ASPI-1160 PO
[2021-10-05] MEDS ORDERED: ALBUTEROL (0.083%) 2.5MG/3ML NEB HHN STA (13:31)
[2021-10-05] MEDS ORDERED: ASPIRIN 325MG EC TABLET PO ONE (14:00)
[2021-10-05] MEDS ORDERED: MORPHINE SULFATE 4 MG/ML CPJ (NOT FOR IM USE) IV ONE (14:00)
[2021-10-05] MEDS ORDERED: METHYLPREDNISOLONE SOD SUCC 125 MG/2 ML VIAL IV ONE (14:00)
[2021-10-05 15:39] LABS: CHLORIDE 112 mEq/L (98-107)
[2021-10-05 15:40] LABS: BASOPHILS % 0.7 % (0.0-2.0); EOSINOPHILS % 1.5 % (0.0-5.0); HEMATOCRIT. 41.1 % (42.0-52.0); HEMOGLOBIN. 13.2 g/dL (14.0-18.0); LYMPHOCYTES % 28.1 % (20.0-50.0); MEAN CORPUSCULAR HEMOGLOBIN 28.3 pg (28.0-32.0); MEAN CORPUSCULAR VOLUME 87.9 fL (80.0-94.0); MEAN PLATELET VOLUME 8.6 fl (7.4-10.4); MONOCYTES % 11.2 % (2.0-8.0); NEUTROPHILS % 58.5 % (40.0-76.0); PLATELET 165 x1000/uL (130-400); RED BLOOD CELL COUNT 4.67 mill/uL (4.7-6.1); RED CELL DISTRIBUTION WIDTH 17.5 % (11.6-14.6)
[2021-10-05 15:44] LABS: ETHANOL BLOOD < 10 mg/dL
[2021-10-05 16:00] LABS: CLARITY URINE CLEAR (CLEAR); COLOR URINE YELLOW (YELLOW); KETONES URINE NEGATIVE (NEGATIVE); LEUKOCYTE ESTERASE URINE NEGATIVE (NEGATIVE); NITRITE URINE NEGATIVE (NEGATIVE); OCCULT BLOOD URINE NEGATIVE (NEGATIVE); PROTEIN URINE 1+ (NEGATIVE); SPECIFIC GRAVITY URINE 1.018 (1.005-1.030); UROBILINOGEN URINE 0.2 E.U./dL (0.2-1.0)
[2021-10-05] MEDS ORDERED: ENOXAPARIN 80MG/0.8ML SYR SUBCUT NR (16:00)
[2021-10-05] MEDS ORDERED: NITROGLYCERIN OINT 1GM/INCH UDPKT TD NR (16:00)
[2021-10-05] MEDS ORDERED: FUROSEMIDE 40MG/4ML VIAL IV NR (16:00)
[2021-10-05] MEDS ORDERED: CALCIUM GLUCONATE 1GM PREMIX 50 ML IV ONE (16:15)
[2021-10-05 16:55] LABS: *AMPHETAMINES SCREEN URINE NEGATIVE (NEGATIVE); *BARBITURATES SCREEN URINE NEGATIVE (NEGATIVE); *BENZODIAZEPINES SCREEN URINE NEGATIVE (NEGATIVE); *COCAINE SCREEN URINE PRESUMTIVE POSITIVE (NEGATIVE)
[2021-10-05 16:56] LABS: CANNABINOID URINE SCREEN NEGATIVE (NEGATIVE); METHADONE URINE SCREEN NEGATIVE (NEGATIVE); OPIATES URINE SCREEN NEGATIVE (NEGATIVE); PHENCYCLIDINE URINE SCREEN NEGATIVE (NEGATIVE)
[2021-10-05 21:44] VITALS: BP 177/119
[2021-10-05] MEDS ORDERED: ACETAMINOPHEN 325MG TABLET PO PRN (23:00)
[2021-10-05] MEDS ORDERED: ALBUTEROL 6.7GM HFA INHALER ORI PRN (23:00)
[2021-10-05] MEDS ORDERED: ALBUTEROL (0.083%) 2.5MG/3ML NEB HHN PRN (23:15)
[2021-10-05] MEDS: CLONIDINE 0.1MG TABLET PO PRN (23:17)
[2021-10-06] VITALS (11 sets, daily range): BP systolic 116–150; BP diastolic 76–111
[2021-10-06 06:41] LABS: BASOPHILS % 0.4 % (0.0-2.0); HEMATOCRIT. 39.9 % (42.0-52.0); HEMOGLOBIN. 12.7 g/dL (14.0-18.0); LYMPHOCYTES % 19.4 % (20.0-50.0); MEAN CORPUSCULAR HEMOGLOBIN 28.2 pg (28.0-32.0); MEAN CORPUSCULAR VOLUME 88.4 fL (80.0-94.0); MEAN PLATELET VOLUME 9.1 fl (7.4-10.4); MONOCYTES % 2.7 % (2.0-8.0); NEUTROPHILS % 77.5 % (40.0-76.0); PLATELET 163 x1000/uL (130-400); RED BLOOD CELL COUNT 4.51 mill/uL (4.7-6.1); RED CELL DISTRIBUTION WIDTH 17.6 % (11.6-14.6)
[2021-10-06] MEDS: CLONIDINE 0.1MG TABLET PO PRN (06:49)
[2021-10-06] MEDS: LOSARTAN POTASSIUM 25 MG TABLET PO SCH (08:03)
[2021-10-06] MEDS: FUROSEMIDE 40MG/4ML VIAL IVP SCH ×2 (08:03→21:18)
[2021-10-06] MEDS: CARVEDILOL 12.5MG TABLET PO SCH ×2 (08:03→21:18)
[2021-10-06] MEDS ORDERED: NALOXONE HCL 0.4MG/ML VIAL IV PRN (11:45)
[2021-10-06] MEDS: ASPIRIN 81MG TABLET PO SCH (12:19)
[2021-10-06] MEDS: HYDROCODONE/ACETAMINOPHEN 5/325MG TABLET PO PRN ×2 (12:27→20:41)
[2021-10-06 13:48] LABS: CREATINE KINASE MB FRACTION 4.8 ng/mL (0.5-3.6)
[2021-10-06 15:17] LABS: FOLIC ACID (FOLATE) SERUM 14.3 ng/mL (>5.38)
[2021-10-06] MEDS: IPRATROPIUM/ALBUTEROL 0.5-3(2.5)MG/3ML NEB HHN SCH (20:30)
[2021-10-07] VITALS: BP 114/65
[2021-10-07] MEDS: HYDROCODONE/ACETAMINOPHEN 5/325MG TABLET PO PRN ×2 (03:45→21:20)
[2021-10-07 04:00] VITALS: BP 104/75
[2021-10-07] MEDS: IPRATROPIUM/ALBUTEROL 0.5-3(2.5)MG/3ML NEB HHN SCH ×4 (07:40→20:33)
[2021-10-07 08:00] VITALS: BP 115/79
[2021-10-07] MEDS: FUROSEMIDE 40MG/4ML VIAL IVP SCH ×3 (09:00→21:14)
[2021-10-07] MEDS: ASPIRIN 81MG TABLET PO SCH (09:32)
[2021-10-07] MEDS: LOSARTAN POTASSIUM 25 MG TABLET PO SCH (09:32)
[2021-10-07] MEDS: CARVEDILOL 12.5MG TABLET PO SCH ×2 (09:33→21:14)
[2021-10-07 10:44] LABS: BASOPHILS % 0.6 % (0.0-2.0); EOSINOPHILS % 1.2 % (0.0-5.0); HEMATOCRIT. 39.4 % (42.0-52.0); HEMOGLOBIN. 12.5 g/dL (14.0-18.0); LYMPHOCYTES % 30.2 % (20.0-50.0); MEAN CORPUSCULAR HEMOGLOBIN 28.3 pg (28.0-32.0); MEAN PLATELET VOLUME 9.3 fl (7.4-10.4); MONOCYTES % 6.5 % (2.0-8.0); NEUTROPHILS % 61.5 % (40.0-76.0); PLATELET 168 x1000/uL (130-400); RED BLOOD CELL COUNT 4.43 mill/uL (4.7-6.1); RED CELL DISTRIBUTION WIDTH 17.5 % (11.6-14.6)
[2021-10-07 12:00] VITALS: BP 116/73
[2021-10-07] MEDS ORDERED: PANTOPRAZOLE 40MG DR TABLET PO NR (14:30)
[2021-10-07 16:00] VITALS: BP 109/77
[2021-10-07] MEDS ORDERED: ENOXAPARIN 40MG/0.4ML SYR SUBCUT SCH (18:00)
[2021-10-07 20:00] VITALS: BP 111/63
[2021-10-08] VITALS: BP 137/75
[2021-10-08] MEDS: IPRATROPIUM/ALBUTEROL 0.5-3(2.5)MG/3ML NEB HHN SCH ×2 (02:32→08:40)
[2021-10-08 04:00] VITALS: BP 110/68
[2021-10-08 06:32] LABS: BASOPHILS % 0.7 % (0.0-2.0); HEMATOCRIT. 37.6 % (42.0-52.0); HEMOGLOBIN. 12.4 g/dL (14.0-18.0); LYMPHOCYTES % 35.3 % (20.0-50.0); MEAN PLATELET VOLUME 9.3 fl (7.4-10.4); MONOCYTES % 10.9 % (2.0-8.0); NEUTROPHILS % 50.1 % (40.0-76.0); PLATELET 171 x1000/uL (130-400); RED BLOOD CELL COUNT 4.27 mill/uL (4.7-6.1); RED CELL DISTRIBUTION WIDTH 17.1 % (11.6-14.6)
[2021-10-08 08:00] VITALS: BP 115/78
[2021-10-08] MEDS ORDERED: CALCIUM CARBONATE 500MG TABLET CHEW PO SCH (08:00)
[2021-10-08] MEDS: FUROSEMIDE 40MG/4ML VIAL IVP SCH (10:04)
[2021-10-08] MEDS: ASPIRIN 81MG TABLET PO SCH (10:04)
[2021-10-08] MEDS: LOSARTAN POTASSIUM 25 MG TABLET PO SCH (10:05)
[2021-10-08] MEDS: CARVEDILOL 12.5MG TABLET PO SCH (10:05)
[2021-10-08 12:00] VITALS: BP 122/61
[2021-10-08 13:47] VITALS: BP 122/61
[2021-10-09] MEDS ORDERED: CALCIUM CARBONATE 500MG TABLET CHEW PO PRN (08:00)
== END 2021-10-08 19:00 | disposition home or self-care (01) | DRG 816 ==
LOC: ER 11:27 → 5EST 16:15 → EDBEDREQTM 16:52 → EDBEDREQ 16:52 → ENRESERV 17:59
PROVIDERS: ADMIT Internal Medicine; ATTEND Internal Medicine
DX: T40.5X1A Poisoning by cocaine, accidental (unintentional), initial encounter (principal); J96.01 Acute respiratory failure with hypoxia; I50.43 Acute on chronic combined systolic (congestive) and diastolic (congestive) heart failure; N17.9 Acute kidney failure, unspecified; I27.20 Pulmonary hypertension, unspecified; I42.0 Dilated cardiomyopathy; I13.0 Hypertensive heart and chronic kidney disease with heart failure and stage 1 through stage 4 chronic kidney disease, or unspecified chronic kidney disease; D64.9 Anemia, unspecified; D72.819 Decreased white blood cell count, unspecified; E78.5 Hyperlipidemia, unspecified; E87.5 Hyperkalemia; F12.10 Cannabis abuse, uncomplicated; I42.8 Other cardiomyopathies; I34.0 Nonrheumatic mitral (valve) insufficiency; F14.10 Cocaine abuse, uncomplicated; I49.3 Ventricular premature depolarization; F17.210 Nicotine dependence, cigarettes, uncomplicated; J68.0 Bronchitis and pneumonitis due to chemicals, gases, fumes and vapors; N18.9 Chronic kidney disease, unspecified; Z86.73 Personal history of transient ischemic attack (TIA), and cerebral infarction without residual deficits; Z91.19 Patient's noncompliance with other medical treatment and regimen; Z79.51 Long term (current) use of inhaled steroids; I25.2 Old myocardial infarction; Z79.82 Long term (current) use of aspirin; Z79.899 Other long term (current) drug therapy; Z71.51 Drug abuse counseling and surveillance of drug abuser; R77.8 Other specified abnormalities of plasma proteins; I20.9 Angina pectoris, unspecified
CPT/HCPCS: 36415; 71045; 76770; 80048; 80053; 80061; 80305; 80320; 81003; 82550; 82553; 82607; 82728; 82746; 83036; 83540; 83550; 83605; 83880; 84145; 84484; 85025; 87426; 93005; 94618; 94640; 99291; J0610; J1650; J1940; J2270; J2930; G0480

== ENCOUNTER 2021-10-18 10:14 | Inpatient (IN) | payer OTHER ==
[~2021-10-18] VITALS: Ht 172.7 cm; Wt 78.9 kg
[~2021-10-18 10:14] MED LIST changes: -POTA20TA82 MT
[2021-10-18] MEDS ORDERED: METHYLPREDNISOLONE SOD SUCC 125 MG/2 ML VIAL IV STA (10:49)
[2021-10-18] MEDS ORDERED: IPRATROPIUM BROMIDE (0.02%) 0.5MG/2.5ML NEB HHN STA (10:49)
[2021-10-18] MEDS ORDERED: ALBUTEROL (0.083%) 2.5MG/3ML NEB HHN STA (10:49)
[2021-10-18 10:52] LABS: BASOPHILS % 1.1 % (0.0-2.0); EOSINOPHILS % 1.7 % (0.0-5.0); HEMOGLOBIN. 12.4 g/dL (14.0-18.0); LYMPHOCYTES % 22.6 % (20.0-50.0); MEAN CORPUSCULAR HEMOGLOBIN 28.3 pg (28.0-32.0); MEAN PLATELET VOLUME 9.1 fl (7.4-10.4); MONOCYTES % 8.3 % (2.0-8.0); NEUTROPHILS % 66.3 % (40.0-76.0); PLATELET 154 x1000/uL (130-400); RED BLOOD CELL COUNT 4.38 mill/uL (4.7-6.1)
[2021-10-18 11:00] LABS: CHLORIDE 112 mEq/L (98-107)
[2021-10-18 11:52] LABS: BG BASE EXCESS -7.4 mmol/L (-2.0-2.0); BG CARBOXYHEMOGLOBIN 0.6 % (0.5-1.5); BG DEOXYHEMOGLOBIN 0.2 % (0.0-5.0); BG FRACTION INSPIRED OXYGEN 100; BG METHEMOGLOBIN 0.4 % (0.0-1.5); BG OXYGEN SATURATION 99.8 % (92.0-98.5); BG OXYHEMOGLOBIN 98.8 % (94.0-97.0); BG PCO2 31.3 mmHg (35.0-45.0); BG PH 7.354 (7.350-7.450); BG PO2 500.5 mmHg (75.0-100.0); BG SAMPLE SITE RIGHT RADIAL; BG TOTAL HEMOGLOBIN 12.7 g/dL (12.0-18.0); BG VENT MODE MASK - BIPAP
[2021-10-18] MEDS ORDERED: ENALAPRIL 2.5MG/2ML VIAL 2ML IV ONE (12:45)
[2021-10-18] MEDS ORDERED: FUROSEMIDE 40MG/4ML VIAL IVP ONE (12:45)
[2021-10-18] MEDS ORDERED: ENALAPRIL 1.25MG/ML VIAL 1ML IV SCH (13:15)
[2021-10-18] MEDS ORDERED: METHYLPREDNISOLONE SOD SUCC 40 MG/ML VIAL IV SCH (16:15)
[2021-10-18] MEDS ORDERED: DOCUSATE SODIUM 100MG CAPSULE PO PRN (16:30)
[2021-10-18] MEDS ORDERED: LORAZEPAM 0.5MG TABLET PO PRN (16:30)
[2021-10-18] MEDS ORDERED: ACETAMINOPHEN 325MG TABLET PO PRN ×2 (16:30)
[2021-10-18] MEDS ORDERED: IPRATROPIUM/ALBUTEROL 0.5-3(2.5)MG/3ML NEB HHN PRN (16:30)
[2021-10-18] MEDS ORDERED: NALOXONE HCL 0.4MG/ML VIAL IV PRN (16:30)
[2021-10-18] MEDS ORDERED: ONDANSETRON HCL 4MG/2ML INJ IV PRN (16:30)
[2021-10-18] MEDS: AMLODIPINE 5MG TABLET PO SCH (16:39)
[2021-10-18] MEDS: ASPIRIN 81MG TABLET PO SCH (16:39)
[2021-10-18] MEDS: FUROSEMIDE 40MG/4ML VIAL IVP SCH (17:36)
[2021-10-18] MEDS: HYDROCODONE/ACETAMINOPHEN 5/325MG TABLET PO PRN (17:37)
[2021-10-18] MEDS: BACLOFEN 10MG TABLET PO SCH ×2 (20:13→22:15)
[2021-10-18] MEDS: CARVEDILOL 12.5MG TABLET PO SCH (21:36)
[2021-10-19] VITALS (10 sets, daily range): BP systolic 120–196; BP diastolic 36–112
[2021-10-19] MEDS: BACLOFEN 10MG TABLET PO SCH ×3 (05:11→21:21)
[2021-10-19] MEDS: CLONIDINE 0.1MG TABLET PO PRN ×2 (05:12→19:48)
[2021-10-19 06:11] LABS: BASOPHILS % 0.1 % (0.0-2.0); LYMPHOCYTES % 11.2 % (20.0-50.0); MEAN CORPUSCULAR VOLUME 89.4 fL (80.0-94.0); MEAN PLATELET VOLUME 9.6 fl (7.4-10.4); MONOCYTES % 1.3 % (2.0-8.0); NEUTROPHILS % 87.4 % (40.0-76.0); PLATELET 159 x1000/uL (130-400); RED BLOOD CELL COUNT 4.14 mill/uL (4.7-6.1); RED CELL DISTRIBUTION WIDTH 17.4 % (11.6-14.6)
[2021-10-19 06:16] LABS: PHOSPHORUS 2.8 mg/dL (2.5-4.9)
[2021-10-19] MEDS: FUROSEMIDE 40MG/4ML VIAL IVP SCH ×2 (08:03→17:39)
[2021-10-19] MEDS: ASPIRIN 81MG TABLET PO SCH (08:03)
[2021-10-19] MEDS: AMLODIPINE 5MG TABLET PO SCH ×2 (08:04→21:22)
[2021-10-19] MEDS: CARVEDILOL 12.5MG TABLET PO SCH (08:04)
[2021-10-19] MEDS: PREDNISONE 20MG TABLET PO SCH (08:04)
[2021-10-19] MEDS: HYDROCODONE/ACETAMINOPHEN 5/325MG TABLET PO PRN (08:05)
[2021-10-19 10:16] LABS: CREATINE KINASE 156 IU/L (39-308)
[2021-10-19] MEDS ORDERED: MAGNESIUM 2 G PREMIX 50 ML IV NR (11:00)
[2021-10-19] MEDS: ENOXAPARIN 40MG/0.4ML SYR SUBCUT SCH (12:18)
[2021-10-19 12:59] LABS: CLARITY URINE CLEAR (CLEAR); COLOR URINE YELLOW (YELLOW); KETONES URINE NEGATIVE (NEGATIVE); LEUKOCYTE ESTERASE URINE NEGATIVE (NEGATIVE); NITRITE URINE NEGATIVE (NEGATIVE); OCCULT BLOOD URINE NEGATIVE (NEGATIVE); PROTEIN URINE NEGATIVE (NEGATIVE); SPECIFIC GRAVITY URINE 1.008 (1.005-1.030); UROBILINOGEN URINE 0.2 E.U./dL (0.2-1.0)
[2021-10-19 13:10] LABS: *AMPHETAMINES SCREEN URINE NEGATIVE (NEGATIVE); *BARBITURATES SCREEN URINE NEGATIVE (NEGATIVE); *COCAINE SCREEN URINE PRESUMTIVE POSITIVE (NEGATIVE)
[2021-10-19 13:11] LABS: *BENZODIAZEPINES SCREEN URINE NEGATIVE (NEGATIVE); CANNABINOID URINE SCREEN NEGATIVE (NEGATIVE); METHADONE URINE SCREEN NEGATIVE (NEGATIVE); OPIATES URINE SCREEN NEGATIVE (NEGATIVE); PHENCYCLIDINE URINE SCREEN NEGATIVE (NEGATIVE)
[2021-10-20 02:00] VITALS: BP 128/74
[2021-10-20 04:00] VITALS: BP 135/101
[2021-10-20] MEDS: CLONIDINE 0.1MG TABLET PO PRN (04:22)
[2021-10-20 06:00] VITALS: BP 121/79
[2021-10-20] MEDS: BACLOFEN 10MG TABLET PO SCH ×2 (06:14→14:23)
[2021-10-20] MEDS: FUROSEMIDE 40MG/4ML VIAL IVP SCH (06:15)
[2021-10-20 06:57] LABS: BASOPHILS % 0.3 % (0.0-2.0); EOSINOPHILS % 0.1 % (0.0-5.0); HEMATOCRIT. 38.5 % (42.0-52.0); HEMOGLOBIN. 12.2 g/dL (14.0-18.0); LYMPHOCYTES % 8.5 % (20.0-50.0); MEAN CORPUSCULAR HEMOGLOBIN 27.9 pg (28.0-32.0); MEAN CORPUSCULAR VOLUME 87.7 fL (80.0-94.0); MEAN PLATELET VOLUME 9.7 fl (7.4-10.4); MONOCYTES % 4.4 % (2.0-8.0); NEUTROPHILS % 86.7 % (40.0-76.0); PLATELET 159 x1000/uL (130-400); RED BLOOD CELL COUNT 4.39 mill/uL (4.7-6.1); RED CELL DISTRIBUTION WIDTH 18.3 % (11.6-14.6)
[2021-10-20 07:10] LABS: PHOSPHORUS 3.1 mg/dL (2.5-4.9)
[2021-10-20 08:00] VITALS: BP 128/93
[2021-10-20] MEDS: ASPIRIN 81MG TABLET PO SCH (08:30)
[2021-10-20] MEDS: PREDNISONE 20MG TABLET PO SCH (08:30)
[2021-10-20] MEDS: AMLODIPINE 5MG TABLET PO SCH (08:31)
[2021-10-20] MEDS: ENOXAPARIN 40MG/0.4ML SYR SUBCUT SCH (08:34)
[2021-10-20] MEDS ORDERED: AMLO5TAB88 PO (12:13)
[2021-10-20] MEDS ORDERED: FAMO20TA8 MT (12:13)
[2021-10-20] MEDS ORDERED: P20 MT (12:13)
[2021-10-20 12:15] VITALS: BP 119/70
== END 2021-10-20 18:09 | disposition home or self-care (01) | DRG 194 ==
LOC: ER 10:14 → 5EST 13:23 → EDBEDREQSVC 22:10 → EDBEDREQTM 22:10 → ENRESERV 22:51
PROVIDERS: ADMIT Internal Medicine; ATTEND Internal Medicine
PROC: 5A09357 Assistance with Respiratory Ventilation, Less than 24 Consecutive Hours, Continuous Positive Airway Pressure (ICD-10-PCS; principal; 2021-10-18)
DX: I13.0 Hypertensive heart and chronic kidney disease with heart failure and stage 1 through stage 4 chronic kidney disease, or unspecified chronic kidney disease (principal); J96.01 Acute respiratory failure with hypoxia; E44.0 Moderate protein-calorie malnutrition; N17.9 Acute kidney failure, unspecified; I50.43 Acute on chronic combined systolic (congestive) and diastolic (congestive) heart failure; I42.9 Cardiomyopathy, unspecified; E83.42 Hypomagnesemia; E87.5 Hyperkalemia; F12.10 Cannabis abuse, uncomplicated; F17.200 Nicotine dependence, unspecified, uncomplicated; N18.9 Chronic kidney disease, unspecified; J68.0 Bronchitis and pneumonitis due to chemicals, gases, fumes and vapors; R74.01 Elevation of levels of liver transaminase levels; Z60.2 Problems related to living alone; Z20.822 Contact with and (suspected) exposure to COVID-19; F14.129 Cocaine abuse with intoxication, unspecified; N28.1 Cyst of kidney, acquired; D72.819 Decreased white blood cell count, unspecified; D64.9 Anemia, unspecified; Z82.3 Family history of stroke; Z86.73 Personal history of transient ischemic attack (TIA), and cerebral infarction without residual deficits; Z91.19 Patient's noncompliance with other medical treatment and regimen; Z79.51 Long term (current) use of inhaled steroids; Z79.82 Long term (current) use of aspirin; Z79.899 Other long term (current) drug therapy; Y92.89 Other specified places as the place of occurrence of the external cause; Z68.26 Body mass index [BMI] 26.0-26.9, adult
CPT/HCPCS: 36415; 36600; 71045; 76770; 80048; 80053; 80305; 81003; 82375; 82550; 82570; 82805; 83735; 83880; 84100; 84300; 84484; 85025; 87426; 87804; 93005; 93306; 94644; 94660; 99291; J1650; J1940; J2405; J2920; J2930; J3475; J3490; J7512

== ENCOUNTER 2021-10-26 23:50 | Emergency (ER) | payer OTHER ==
[~2021-10-26] VITALS: Ht 180.3 cm; Wt 68.2 kg
[~2021-10-26 23:50] MED LIST changes: +AMLO5TAB88 PO; -COR12 PO; +FAMO20TA8 MT; -LOSA25TA26 MT; +P20 MT
[2021-10-27] MEDS ORDERED: IPRATROPIUM BROMIDE (0.02%) 0.5MG/2.5ML NEB HHN STA (00:33)
[2021-10-27] MEDS ORDERED: ALBUTEROL (0.083%) 2.5MG/3ML NEB HHN STA (00:33)
[2021-10-27] MEDS ORDERED: MAGNESIUM 2 G PREMIX 50 ML IV STA (00:33)
[2021-10-27] MEDS ORDERED: METHYLPREDNISOLONE SOD SUCC 125 MG/2 ML VIAL IV STA (00:33)
[2021-10-27 01:13] LABS: HEMATOCRIT 40.6 % (42.0-52.0); HEMOGLOBIN 13.1 g/dL (14.0-18.0); MEAN CORPUSCULAR HEMOGLOBIN 28.5 pg (28.0-32.0); MEAN CORPUSCULAR VOLUME 88.2 fL (80.0-94.0); PLATELET 169 x1000/uL (130-400); RED CELL DISTRIBUTION WIDTH 17.8 % (11.6-14.6)
[2021-10-27 01:28] LABS: CHLORIDE 112 mEq/L (98-107)
[2021-10-27] MEDS ORDERED: ACETAMINOPHEN 500MG TABLET PO ONE (02:45)
[2021-10-27 03:48] VITALS: BP 128/88
== END 2021-10-27 04:40 | disposition short-term general hospital (02) ==
LOC: ER 23:50
DX: J44.1 Chronic obstructive pulmonary disease with (acute) exacerbation (principal); F14.10 Cocaine abuse, uncomplicated; F17.290 Nicotine dependence, other tobacco product, uncomplicated; F12.10 Cannabis abuse, uncomplicated; I25.2 Old myocardial infarction; Z20.822 Contact with and (suspected) exposure to COVID-19; Z79.82 Long term (current) use of aspirin; Z79.899 Other long term (current) drug therapy; Z86.73 Personal history of transient ischemic attack (TIA), and cerebral infarction without residual deficits
CPT/HCPCS: 36415; 71045; 80053; 85027; 87426; 93005; 94644; 96365; 96375; 99285; 99406; J2930; J3475; Z7610

== ENCOUNTER 2021-11-23 03:49 | Inpatient (IN) | payer OTHER ==
[~2021-11-23] VITALS: Ht 180.3 cm; Wt 70.5 kg
[2021-11-23] MEDS ORDERED: METHYLPREDNISOLONE SOD SUCC 125 MG/2 ML VIAL IV STA (03:55)
[2021-11-23] MEDS ORDERED: IPRATROPIUM BROMIDE (0.02%) 0.5MG/2.5ML NEB HHN STA (03:55)
[2021-11-23] MEDS ORDERED: ALBUTEROL (0.083%) 2.5MG/3ML NEB HHN STA (03:55)
[2021-11-23] MEDS ORDERED: MAGNESIUM 2 G PREMIX 50 ML IV STA (03:55)
[2021-11-23] MEDS ORDERED: ASPIRIN 325MG EC TABLET PO ONE (04:00)
[2021-11-23 05:00] LABS: HEMATOCRIT 37.6 % (42.0-52.0); HEMOGLOBIN 12.2 g/dL (14.0-18.0); MEAN CORPUSCULAR HEMOGLOBIN 28.7 pg (28.0-32.0); MEAN CORPUSCULAR VOLUME 88.5 fL (80.0-94.0); PLATELET 139 x1000/uL (130-400); RED BLOOD CELL COUNT 4.25 mill/uL (4.7-6.1); RED CELL DISTRIBUTION WIDTH 18.4 % (11.6-14.6)
[2021-11-23 05:08] LABS: CHLORIDE 116 mEq/L (98-107)
[2021-11-23] MEDS ORDERED: MORPHINE SULFATE 4 MG/ML CPJ (NOT FOR IM USE) IV ONE (05:45)
[2021-11-23] MEDS ORDERED: MAGNESIUM/ALUMINUM HYDROXIDE/SIMETHICONE 30ML UDC PO PRN (10:30)
[2021-11-23] MEDS ORDERED: IPRATROPIUM/ALBUTEROL 0.5-3(2.5)MG/3ML NEB HHN PRN (10:30)
[2021-11-23] MEDS ORDERED: ONDANSETRON HCL 4MG/2ML INJ IV PRN (10:30)
[2021-11-23] MEDS ORDERED: HYDRALAZINE 20MG/ML VIAL IV PRN (10:30)
[2021-11-23] MEDS ORDERED: DIPHENHYDRAMINE 50MG/ML VIAL IV PRN (10:30)
[2021-11-23] MEDS ORDERED: GUAIFENESIN 200MG/10ML SUGAR FREE UDC PO PRN (10:30)
[2021-11-23] MEDS ORDERED: DOCUSATE SODIUM 100MG CAPSULE PO PRN (10:30)
[2021-11-23] MEDS ORDERED: ENOXAPARIN 100MG/ML SYR SUBCUT NR (11:15)
[2021-11-23 12:17] VITALS: BP 145/93
[2021-11-23 12:25] VITALS: BP 145/93
[2021-11-23 12:33] LABS: PROTHROMBIN TIME 10.3 sec (9.6-11.0)
[2021-11-23] MEDS: FUROSEMIDE 40MG/4ML VIAL IVP SCH (13:33)
[2021-11-23] MEDS: CLONIDINE 0.1MG TABLET PO PRN (13:33)
[2021-11-23] MEDS: SODIUM CHLORIDE 0.9% INJ 3ML FLUSH IVF SCH ×2 (13:34→22:29)
[2021-11-23 14:00] VITALS: BP 158/108
[2021-11-23 16:00] VITALS: BP 154/99
[2021-11-23 16:33] LABS: CREATINE KINASE MB FRACTION 6.4 ng/mL (0.5-3.6)
[2021-11-23 18:00] VITALS: BP 143/92
[2021-11-23 20:00] VITALS: BP 147/96
[2021-11-23] MEDS: ACETAMINOPHEN 325MG TABLET PO PRN (23:28)
[2021-11-24] VITALS (11 sets, daily range): BP systolic 117–151; BP diastolic 58–108
[2021-11-24 00:31] LABS: CREATINE KINASE MB FRACTION 5.9 ng/mL (0.5-3.6)
[2021-11-24] MEDS: SODIUM CHLORIDE 0.9% INJ 3ML FLUSH IVF SCH ×3 (06:14→21:42)
[2021-11-24 09:14] LABS: CHLORIDE 107 mEq/L (98-107)
[2021-11-24 09:16] LABS: BASOPHILS % 0.2 % (0.0-2.0); EOSINOPHILS % 0.2 % (0.0-5.0); HEMATOCRIT. 36.7 % (42.0-52.0); HEMOGLOBIN. 11.9 g/dL (14.0-18.0); LYMPHOCYTES % 15.9 % (20.0-50.0); MEAN CORPUSCULAR HEMOGLOBIN 28.8 pg (28.0-32.0); MEAN CORPUSCULAR VOLUME 88.3 fL (80.0-94.0); MONOCYTES % 7.6 % (2.0-8.0); NEUTROPHILS % 76.1 % (40.0-76.0); PLATELET 150 x1000/uL (130-400); RED BLOOD CELL COUNT 4.15 mill/uL (4.7-6.1); RED CELL DISTRIBUTION WIDTH 18.1 % (11.6-14.6)
[2021-11-24] MEDS: PREDNISONE 20MG TABLET PO SCH (09:31)
[2021-11-24] MEDS: FUROSEMIDE 40MG/4ML VIAL IVP SCH (09:31)
[2021-11-24 10:57] LABS: CLARITY URINE CLEAR (CLEAR); COLOR URINE YELLOW (YELLOW); KETONES URINE NEGATIVE (NEGATIVE); LEUKOCYTE ESTERASE URINE NEGATIVE (NEGATIVE); NITRITE URINE NEGATIVE (NEGATIVE); OCCULT BLOOD URINE NEGATIVE (NEGATIVE); PH URINE 5.5 (4.5-8.0); PROTEIN URINE 2+ (NEGATIVE); SPECIFIC GRAVITY URINE 1.016 (1.005-1.030); UROBILINOGEN URINE 0.2 E.U./dL (0.2-1.0)
[2021-11-24] MEDS: LORAZEPAM 2MG/ML CPJ IV PRN (18:59)
[2021-11-25] VITALS (10 sets, daily range): BP systolic 133–167; BP diastolic 78–109
[2021-11-25] MEDS: LORAZEPAM 2MG/ML CPJ IV PRN ×2 (02:21→23:27)
[2021-11-25] MEDS: SODIUM CHLORIDE 0.9% INJ 3ML FLUSH IVF SCH ×3 (06:00→19:59)
[2021-11-25] MEDS: PREDNISONE 20MG TABLET PO SCH (08:58)
[2021-11-25] MEDS: FUROSEMIDE 40MG/4ML VIAL IVP SCH (08:58)
[2021-11-25] MEDS: CLONIDINE 0.1MG TABLET PO PRN (20:11)
[2021-11-25] MEDS: ACETAMINOPHEN 325MG TABLET PO PRN (20:11)
[2021-11-25 23:52] LABS: *BENZODIAZEPINES SCREEN URINE NEGATIVE (NEGATIVE); *COCAINE SCREEN URINE PRESUMTIVE POSITIVE (NEGATIVE)
[2021-11-25 23:53] LABS: *AMPHETAMINES SCREEN URINE NEGATIVE (NEGATIVE); *BARBITURATES SCREEN URINE NEGATIVE (NEGATIVE); CANNABINOID URINE SCREEN NEGATIVE (NEGATIVE); METHADONE URINE SCREEN NEGATIVE (NEGATIVE); OPIATES URINE SCREEN NEGATIVE (NEGATIVE); PHENCYCLIDINE URINE SCREEN NEGATIVE (NEGATIVE)
[2021-11-26] VITALS (9 sets, daily range): BP systolic 105–163; BP diastolic 39–114
[2021-11-26] MEDS: SODIUM CHLORIDE 0.9% INJ 3ML FLUSH IVF SCH ×3 (06:36→23:35)
[2021-11-26] MEDS: CLONIDINE 0.1MG TABLET PO PRN (06:50)
[2021-11-26] MEDS: FUROSEMIDE 40MG/4ML VIAL IVP SCH (08:37)
[2021-11-26] MEDS: PREGABALIN 50 MG CAPSULE PO SCH ×2 (08:37→21:44)
[2021-11-26] MEDS: PREDNISONE 20MG TABLET PO SCH (08:37)
[2021-11-26] MEDS: NICOTINE 14MG PATCH TD SCH (10:39)
[2021-11-26] MEDS: ASPIRIN 81MG EC TABLET PO SCH (13:08)
[2021-11-26] MEDS: HYDRALAZINE HCL 25MG TABLET PO SCH ×2 (13:08→21:44)
[2021-11-26] MEDS ORDERED: FLUT1DIS3 INH (16:49)
[2021-11-26] MEDS ORDERED: ALBU6.7H9 INH (16:49)
[2021-11-26] MEDS: LORAZEPAM 2MG/ML CPJ IV PRN (23:34)
[2021-11-27] VITALS (7 sets, daily range): BP systolic 119–160; BP diastolic 44–119
[2021-11-27] MEDS: SODIUM CHLORIDE 0.9% INJ 3ML FLUSH IVF SCH (06:00)
[2021-11-27 07:02] LABS: BASOPHILS % 0.4 % (0.0-2.0); EOSINOPHILS % 1.2 % (0.0-5.0); HEMATOCRIT. 38.6 % (42.0-52.0); HEMOGLOBIN. 12.6 g/dL (14.0-18.0); LYMPHOCYTES % 19.2 % (20.0-50.0); MEAN CORPUSCULAR HEMOGLOBIN 28.4 pg (28.0-32.0); MEAN CORPUSCULAR VOLUME 86.9 fL (80.0-94.0); MEAN PLATELET VOLUME 8.8 fl (7.4-10.4); MONOCYTES % 7.1 % (2.0-8.0); NEUTROPHILS % 72.1 % (40.0-76.0); PLATELET 163 x1000/uL (130-400); RED BLOOD CELL COUNT 4.44 mill/uL (4.7-6.1); RED CELL DISTRIBUTION WIDTH 17.8 % (11.6-14.6)
[2021-11-27] MEDS: HYDRALAZINE HCL 25MG TABLET PO SCH (07:43)
[2021-11-27] MEDS: FUROSEMIDE 40MG/4ML VIAL IVP SCH (08:34)
[2021-11-27] MEDS: PREDNISONE 20MG TABLET PO SCH (08:34)
[2021-11-27] MEDS: ASPIRIN 81MG EC TABLET PO SCH (08:34)
[2021-11-27] MEDS: PREGABALIN 50 MG CAPSULE PO SCH (08:34)
[2021-11-27] MEDS: NICOTINE 14MG PATCH TD SCH (08:34)
[2021-11-27] MEDS ORDERED: ISOSORBIDE MONONITRATE 30MG TABLET SR 24HR PO SCH (12:30)
== END 2021-11-27 15:25 | disposition home or self-care (01) | DRG 133 ==
LOC: ER 03:49 → 3WST 05:52 → ENRESERV 10:13 → 3WST 11:51
PROVIDERS: ADMIT Internal Medicine; ATTEND Internal Medicine
DX: J96.01 Acute respiratory failure with hypoxia (principal); N17.0 Acute kidney failure with tubular necrosis; I50.23 Acute on chronic systolic (congestive) heart failure; E44.1 Mild protein-calorie malnutrition; I47.2 Ventricular tachycardia; J44.1 Chronic obstructive pulmonary disease with (acute) exacerbation; I42.9 Cardiomyopathy, unspecified; N18.9 Chronic kidney disease, unspecified; I13.0 Hypertensive heart and chronic kidney disease with heart failure and stage 1 through stage 4 chronic kidney disease, or unspecified chronic kidney disease; F14.10 Cocaine abuse, uncomplicated; D64.9 Anemia, unspecified; F12.10 Cannabis abuse, uncomplicated; Z20.822 Contact with and (suspected) exposure to COVID-19; F17.210 Nicotine dependence, cigarettes, uncomplicated; I25.10 Atherosclerotic heart disease of native coronary artery without angina pectoris; I27.29 Other secondary pulmonary hypertension; I73.9 Peripheral vascular disease, unspecified; M10.9 Gout, unspecified; Z82.49 Family history of ischemic heart disease and other diseases of the circulatory system; Z68.21 Body mass index [BMI] 21.0-21.9, adult; I25.2 Old myocardial infarction; Z86.711 Personal history of pulmonary embolism; Z86.73 Personal history of transient ischemic attack (TIA), and cerebral infarction without residual deficits; Z91.14 Patient's other noncompliance with medication regimen; Z71.6 Tobacco abuse counseling
CPT/HCPCS: 36415; 71045; 73630; 76770; 80048; 80053; 80305; 81003; 82550; 82553; 82570; 83735; 83880; 84100; 84156; 84300; 84443; 84484; 85025; 85027; 85379; 87426; 93005; 93923; 93970; 94618; 99291; J0360; J1200; J1650; J1940; J2060; J2270; J2930; J3475; J7512

== ENCOUNTER 2021-12-08 23:02 | Emergency (ER) | payer OTHER ==
[~2021-12-08] VITALS: Ht 180.3 cm; Wt 91.0 kg
[~2021-12-08 23:02] MED LIST changes: +ALBU6.7H9 INH
[2021-12-08] MEDS ORDERED: METHYLPREDNISOLONE SOD SUCC 125 MG/2 ML VIAL IV STA (23:26)
[2021-12-08] MEDS ORDERED: IPRATROPIUM BROMIDE (0.02%) 0.5MG/2.5ML NEB HHN STA (23:26)
[2021-12-08] MEDS ORDERED: ALBUTEROL (0.083%) 2.5MG/3ML NEB HHN STA (23:26)
[2021-12-08] MEDS ORDERED: MAGNESIUM 2 G PREMIX 50 ML IV ONE (23:30)
[2021-12-08 23:56] LABS: EOSINOPHILS % 2.2 % (0.0-5.0); HEMATOCRIT. 40.3 % (42.0-52.0); HEMOGLOBIN. 13.1 g/dL (14.0-18.0); LYMPHOCYTES % 27.7 % (20.0-50.0); MEAN CORPUSCULAR HEMOGLOBIN 28.7 pg (28.0-32.0); MEAN CORPUSCULAR VOLUME 88.5 fL (80.0-94.0); MEAN PLATELET VOLUME 8.7 fl (7.4-10.4); MONOCYTES % 12.1 % (2.0-8.0); PLATELET 147 x1000/uL (130-400); RED BLOOD CELL COUNT 4.56 mill/uL (4.7-6.1); RED CELL DISTRIBUTION WIDTH 18.1 % (11.6-14.6)
[2021-12-08 23:58] LABS: CHLORIDE 112 mEq/L (98-107)
[2021-12-09] MEDS ORDERED: ASPIRIN 325MG TABLET PO ONE (00:30)
[2021-12-09 03:07] VITALS: BP 161/105
== END 2021-12-09 03:18 | disposition short-term general hospital (02) ==
LOC: ER 23:02
DX: J44.1 Chronic obstructive pulmonary disease with (acute) exacerbation (principal); R77.8 Other specified abnormalities of plasma proteins; I50.9 Heart failure, unspecified; Z86.73 Personal history of transient ischemic attack (TIA), and cerebral infarction without residual deficits; F17.290 Nicotine dependence, other tobacco product, uncomplicated; Z79.899 Other long term (current) drug therapy; Z20.822 Contact with and (suspected) exposure to COVID-19
CPT/HCPCS: 36415; 71045; 80053; 83880; 84484; 85025; 87426; 93005; 94644; 96365; 96366; 96375; 99291; J2930; J3475; Z7610

== ENCOUNTER 2022-01-02 09:23 | Inpatient (IN) | payer OTHER ==
[~2022-01-02] VITALS: Ht 180.3 cm; Wt 73.5 kg
[2022-01-02] MEDS ORDERED: MAGNESIUM 2 G PREMIX 50 ML IV STA (09:42)
[2022-01-02] MEDS ORDERED: IPRATROPIUM BROMIDE (0.02%) 0.5MG/2.5ML NEB HHN STA (09:43)
[2022-01-02] MEDS ORDERED: ALBUTEROL (0.083%) 2.5MG/3ML NEB HHN STA (09:43)
[2022-01-02] MEDS ORDERED: METHYLPREDNISOLONE SOD SUCC 125 MG/2 ML VIAL IV STA (09:43)
[2022-01-02 10:00] LABS: BASOPHILS % 0.8 % (0.0-2.0); EOSINOPHILS % 1.7 % (0.0-5.0); HEMATOCRIT. 36.6 % (42.0-52.0); HEMOGLOBIN. 11.9 g/dL (14.0-18.0); LYMPHOCYTES % 27.5 % (20.0-50.0); MEAN CORPUSCULAR HEMOGLOBIN 28.3 pg (28.0-32.0); MEAN PLATELET VOLUME 9.2 fl (7.4-10.4); MONOCYTES % 9.1 % (2.0-8.0); NEUTROPHILS % 60.9 % (40.0-76.0); PLATELET 161 x1000/uL (130-400); RED BLOOD CELL COUNT 4.21 mill/uL (4.7-6.1)
[2022-01-02 10:04] LABS: CHLORIDE 112 mEq/L (98-107)
[2022-01-02] MEDS ORDERED: LACTULOSE 20G/30ML UDC PO ONE (10:15)
[2022-01-02] MEDS ORDERED: MORPHINE SULFATE 4 MG/ML CPJ (NOT FOR IM USE) IV STA (10:28)
[2022-01-02] MEDS ORDERED: ENOXAPARIN 80MG/0.8ML SYR SUBCUT ONE (10:30)
[2022-01-02] MEDS ORDERED: NITROGLYCERIN OINT 1GM/INCH UDPKT TD ONE (10:30)
[2022-01-02] MEDS ORDERED: FUROSEMIDE 40MG/4ML VIAL IVP ONE (10:45)
[2022-01-02] MEDS ORDERED: ENALAPRIL 2.5MG/2ML VIAL 2ML IV ONE (10:45)
[2022-01-02] MEDS ORDERED: ENALAPRIL 1.25MG/ML VIAL 1ML IV NR (10:45)
[2022-01-02 13:21] LABS: INR 1.1; PROTHROMBIN TIME 11.3 sec (9.6-11.0)
[2022-01-02 13:33] LABS: *AMPHETAMINES SCREEN URINE NEGATIVE (NEGATIVE); *COCAINE SCREEN URINE PRESUMTIVE POSITIVE (NEGATIVE); METHADONE URINE SCREEN NEGATIVE (NEGATIVE); PHENCYCLIDINE URINE SCREEN NEGATIVE (NEGATIVE)
[2022-01-02 13:34] LABS: *BARBITURATES SCREEN URINE NEGATIVE (NEGATIVE); CANNABINOID URINE SCREEN NEGATIVE (NEGATIVE); OPIATES URINE SCREEN PRESUMTIVE POSITIVE (NEGATIVE)
[2022-01-02 13:36] LABS: *BENZODIAZEPINES SCREEN URINE NEGATIVE (NEGATIVE)
[2022-01-02] MEDS ORDERED: ONDANSETRON HCL 4MG/2ML INJ IV PRN (15:00)
[2022-01-02] MEDS ORDERED: HYDRALAZINE 20MG/ML VIAL IV PRN (15:00)
[2022-01-02 15:25] LABS: BG CARBOXYHEMOGLOBIN 0.3 % (0.5-1.5); BG DEOXYHEMOGLOBIN 1.9 % (0.0-5.0); BG FRACTION INSPIRED OXYGEN 40; BG HCO3 ACT 20.4 mmol/L (22.0-26.0); BG METHEMOGLOBIN 0.2 % (0.0-1.5); BG OXYGEN SATURATION 98.1 % (92.0-98.5); BG OXYHEMOGLOBIN 97.6 % (94.0-97.0); BG PCO2 31.8 mmHg (35.0-45.0); BG PH 7.426 (7.350-7.450); BG PO2 116.6 mmHg (75.0-100.0); BG SAMPLE SITE LEFT BRACHIAL; BG TOTAL HEMOGLOBIN 12.8 g/dL (12.0-18.0); BG TOTAL RESPIRATORY RATE 21 b/min; BG VENT MODE MASK - BIPAP
[2022-01-02] MEDS ORDERED: ENOXAPARIN 80MG/0.8ML SYR SUBCUT SCH ×2 (15:30→22:00)
[2022-01-02] MEDS: PANTOPRAZOLE SODIUM 40 MG/VIAL IV SCH (15:37)
[2022-01-02] MEDS: ASPIRIN 81MG TABLET PO SCH (15:37)
[2022-01-02] MEDS: PREDNISONE 20MG TABLET PO SCH ×2 (15:38→20:25)
[2022-01-02] MEDS ORDERED: FUROSEMIDE 40MG/4ML VIAL IVP SCH (17:00)
[2022-01-02] MEDS: IPRATROPIUM/ALBUTEROL 0.5-3(2.5)MG/3ML NEB NEB SCH ×2 (18:02→20:49)
[2022-01-02 18:13] VITALS: BP 142/89
[2022-01-02 18:24] VITALS: BP 142/89
[2022-01-02 20:00] VITALS: BP 146/97
[2022-01-02] MEDS: AMLODIPINE 5MG TABLET PO SCH (20:24)
[2022-01-02] MEDS: NICOTINE 7MG PATCH TD SCH (20:25)
[2022-01-02 22:00] VITALS: BP 132/94
[2022-01-02] MEDS: ACETAMINOPHEN 325MG TABLET PO PRN (22:33)
[2022-01-03] VITALS (12 sets, daily range): BP systolic 109–159; BP diastolic 58–103
[2022-01-03] MEDS: IPRATROPIUM/ALBUTEROL 0.5-3(2.5)MG/3ML NEB NEB SCH ×6 (00:07→20:33)
[2022-01-03 05:57] LABS: BASOPHILS % 0.1 % (0.0-2.0); HEMATOCRIT. 34.9 % (42.0-52.0); HEMOGLOBIN. 11.4 g/dL (14.0-18.0); LYMPHOCYTES % 10.4 % (20.0-50.0); MEAN CORPUSCULAR HEMOGLOBIN 28.2 pg (28.0-32.0); MEAN CORPUSCULAR VOLUME 86.1 fL (80.0-94.0); MEAN PLATELET VOLUME 9.4 fl (7.4-10.4); MONOCYTES % 3.2 % (2.0-8.0); NEUTROPHILS % 86.3 % (40.0-76.0); PLATELET 176 x1000/uL (130-400); RED BLOOD CELL COUNT 4.05 mill/uL (4.7-6.1); RED CELL DISTRIBUTION WIDTH 17.8 % (11.6-14.6)
[2022-01-03 08:52] LABS: BG BASE EXCESS -5.4 mmol/L (-2.0-2.0); BG CARBOXYHEMOGLOBIN 0.3 % (0.5-1.5); BG DEOXYHEMOGLOBIN 4.4 % (0.0-5.0); BG FRACTION INSPIRED OXYGEN 21; BG HCO3 ACT 18.5 mmol/L (22.0-26.0); BG METHEMOGLOBIN 0.1 % (0.0-1.5); BG OXYGEN SATURATION 95.6 % (92.0-98.5); BG OXYHEMOGLOBIN 95.2 % (94.0-97.0); BG PH 7.393 (7.350-7.450); BG PO2 83.2 mmHg (75.0-100.0); BG SAMPLE SITE RIGHT RADIAL; BG TOTAL HEMOGLOBIN 12.3 g/dL (12.0-18.0); BG VENT MODE ROOM AIR
[2022-01-03] MEDS: AMLODIPINE 5MG TABLET PO SCH ×2 (09:36→21:07)
[2022-01-03] MEDS: FUROSEMIDE 40MG/4ML VIAL IVP SCH ×2 (09:36→17:07)
[2022-01-03] MEDS: ASPIRIN 81MG TABLET PO SCH (09:36)
[2022-01-03] MEDS: PANTOPRAZOLE SODIUM 40 MG/VIAL IV SCH (09:36)
[2022-01-03] MEDS: PREDNISONE 20MG TABLET PO SCH ×2 (09:36→17:07)
[2022-01-03] MEDS: NICOTINE 7MG PATCH TD SCH (09:37)
[2022-01-03] MEDS: ACETAMINOPHEN 325MG TABLET PO PRN (19:41)
[2022-01-03] MEDS ORDERED: ENOXAPARIN 40MG/0.4ML SYR SUBCUT SCH (21:00)
[2022-01-04] VITALS (8 sets, daily range): BP systolic 129–146; BP diastolic 82–102
[2022-01-04] MEDS: IPRATROPIUM/ALBUTEROL 0.5-3(2.5)MG/3ML NEB NEB SCH ×5 (00:22→16:51)
[2022-01-04] MEDS: ACETAMINOPHEN 325MG TABLET PO PRN (02:12)
[2022-01-04] MEDS: FUROSEMIDE 40MG/4ML VIAL IVP SCH (06:32)
[2022-01-04] MEDS: NICOTINE 7MG PATCH TD SCH (07:47)
[2022-01-04] MEDS: AMLODIPINE 5MG TABLET PO SCH (07:48)
[2022-01-04] MEDS: ASPIRIN 81MG TABLET PO SCH (07:48)
[2022-01-04] MEDS: PREDNISONE 20MG TABLET PO SCH (07:48)
[2022-01-04] MEDS ORDERED: FAMOTIDINE 20MG/2ML VIAL IV SCH (09:00)
== END 2022-01-04 17:25 | disposition home or self-care (01) | DRG 194 ==
LOC: ER 09:33 → 3WST 11:41 → ENRESERV 17:04
PROVIDERS: ADMIT Internal Medicine; ATTEND Internal Medicine
PROC: 5A09357 Assistance with Respiratory Ventilation, Less than 24 Consecutive Hours, Continuous Positive Airway Pressure (ICD-10-PCS; principal; 2021-12-31)
DX: I13.0 Hypertensive heart and chronic kidney disease with heart failure and stage 1 through stage 4 chronic kidney disease, or unspecified chronic kidney disease (principal); J96.01 Acute respiratory failure with hypoxia; I21.4 Non-ST elevation (NSTEMI) myocardial infarction; I50.23 Acute on chronic systolic (congestive) heart failure; N17.9 Acute kidney failure, unspecified; F17.210 Nicotine dependence, cigarettes, uncomplicated; J44.9 Chronic obstructive pulmonary disease, unspecified; I73.9 Peripheral vascular disease, unspecified; F14.10 Cocaine abuse, uncomplicated; R74.01 Elevation of levels of liver transaminase levels; Z20.822 Contact with and (suspected) exposure to COVID-19; N18.9 Chronic kidney disease, unspecified; Z86.73 Personal history of transient ischemic attack (TIA), and cerebral infarction without residual deficits; Z79.899 Other long term (current) drug therapy; Z79.82 Long term (current) use of aspirin; Z82.49 Family history of ischemic heart disease and other diseases of the circulatory system; Z71.6 Tobacco abuse counseling; Z71.51 Drug abuse counseling and surveillance of drug abuser
CPT/HCPCS: 36415; 36600; 71045; 80048; 80053; 80305; 82375; 82805; 83880; 84484; 85025; 87426; 93005; 93970; 94640; 94660; 99291; C9113; J1650; J1940; J2270; J2930; J3475; J3490; J7512

== ENCOUNTER 2022-02-05 06:31 | Inpatient (IN) | payer MEDICAID, OTHER ==
[~2022-02-05] VITALS: Ht 180.3 cm; Wt 71.9 kg
[2022-02-05] MEDS ORDERED: METHYLPREDNISOLONE SOD SUCC 125 MG/2 ML VIAL IV STA (06:37)
[2022-02-05] MEDS ORDERED: LORAZEPAM 1MG TABLET PO ONE (06:45)
[2022-02-05 07:10] LABS: HEMOGLOBIN. 13.6 g/dL (14.0-18.0); MEAN CORPUSCULAR VOLUME 88.6 fL (80.0-94.0); MEAN PLATELET VOLUME 9.1 fl (7.4-10.4); PLATELET 214 x1000/uL (130-400); RED BLOOD CELL COUNT 4.85 mill/uL (4.7-6.1); RED CELL DISTRIBUTION WIDTH 18.5 % (11.6-14.6)
[2022-02-05 07:18] LABS: CHLORIDE 110 mEq/L (98-107)
[2022-02-05 07:23] LABS: ETHANOL BLOOD < 10 mg/dL
[2022-02-05 08:22] LABS: PLATELET ESTIMATE NORMAL
[2022-02-05] MEDS ORDERED: FUROSEMIDE 40MG/4ML VIAL IV ONE (11:00)
[2022-02-05] MEDS ORDERED: ASPIRIN 81MG TABLET PO ONE (11:00)
[2022-02-05 11:51] LABS: CLARITY URINE CLEAR (CLEAR); COLOR URINE YELLOW (YELLOW); KETONES URINE NEGATIVE (NEGATIVE); LEUKOCYTE ESTERASE URINE NEGATIVE (NEGATIVE); NITRITE URINE NEGATIVE (NEGATIVE); OCCULT BLOOD URINE NEGATIVE (NEGATIVE); PH URINE 5.5 (4.5-8.0); PROTEIN URINE 2+ (NEGATIVE)
[2022-02-05 12:12] LABS: METHADONE URINE SCREEN NEGATIVE (NEGATIVE)
[2022-02-05 12:14] LABS: *AMPHETAMINES SCREEN URINE NEGATIVE (NEGATIVE); *BARBITURATES SCREEN URINE NEGATIVE (NEGATIVE); *BENZODIAZEPINES SCREEN URINE NEGATIVE (NEGATIVE); *COCAINE SCREEN URINE PRESUMTIVE POSITIVE (NEGATIVE); CANNABINOID URINE SCREEN NEGATIVE (NEGATIVE); OPIATES URINE SCREEN NEGATIVE (NEGATIVE); PHENCYCLIDINE URINE SCREEN NEGATIVE (NEGATIVE)
[2022-02-05] MEDS ORDERED: HYDRALAZINE HCL 25MG TABLET PO NR (13:45)
[2022-02-05] MEDS ORDERED: ONDANSETRON HCL 4MG/2ML INJ IV PRN (14:15)
[2022-02-05] MEDS ORDERED: ACETAMINOPHEN 325MG TABLET PO PRN ×2 (14:15→15:00)
[2022-02-05] MEDS ORDERED: CLONIDINE 0.1MG TABLET PO PRN (14:15)
[2022-02-05] MEDS ORDERED: MAGNESIUM/ALUMINUM HYDROXIDE/SIMETHICONE 30ML UDC PO PRN (14:15)
[2022-02-05] MEDS ORDERED: HYDROCODONE/ACETAMINOPHEN 5/325MG TABLET PO PRN (14:15)
[2022-02-05] MEDS: AMLODIPINE 5MG TABLET PO SCH (14:54)
[2022-02-05 16:00] VITALS: BP 172/117
[2022-02-05 16:27] VITALS: BP 172/117
[2022-02-05] MEDS: ENOXAPARIN 40MG/0.4ML SYR SUBCUT SCH (17:06)
[2022-02-05 20:00] VITALS: BP 160/99
[2022-02-05] MEDS: SODIUM CHLORIDE 0.45% 1,000 ML IV SCH (21:30)
[2022-02-06] VITALS: BP 154/77
[2022-02-06 04:00] VITALS: BP 128/97
[2022-02-06 07:02] LABS: BASOPHILS % 0.1 % (0.0-2.0); EOSINOPHILS % 0.1 % (0.0-5.0); HEMATOCRIT. 35.2 % (42.0-52.0); HEMOGLOBIN. 11.4 g/dL (14.0-18.0); LYMPHOCYTES % 14.6 % (20.0-50.0); MEAN CORPUSCULAR HEMOGLOBIN 28.4 pg (28.0-32.0); MEAN CORPUSCULAR VOLUME 87.4 fL (80.0-94.0); MEAN PLATELET VOLUME 9.3 fl (7.4-10.4); MONOCYTES % 5.3 % (2.0-8.0); NEUTROPHILS % 79.9 % (40.0-76.0); PLATELET 206 x1000/uL (130-400); RED BLOOD CELL COUNT 4.03 mill/uL (4.7-6.1); RED CELL DISTRIBUTION WIDTH 17.7 % (11.6-14.6)
[2022-02-06 07:20] LABS: PHOSPHORUS 2.9 mg/dL (2.5-4.9)
[2022-02-06] MEDS: SODIUM CHLORIDE 0.45% 1,000 ML IV SCH ×2 (07:30→17:14)
[2022-02-06 08:00] VITALS: BP 148/89
[2022-02-06] MEDS: AMLODIPINE 5MG TABLET PO SCH (09:20)
[2022-02-06] MEDS: FUROSEMIDE 40MG/4ML VIAL IVP SCH (09:20)
[2022-02-06 12:00] VITALS: BP 148/77
[2022-02-06] MEDS ORDERED: FERR-63 PO (13:55)
[2022-02-06] MEDS: ENOXAPARIN 40MG/0.4ML SYR SUBCUT SCH (14:36)
[2022-02-06 16:00] VITALS: BP 135/54
[2022-02-06] MEDS: FERROUS SULFATE 325MG TABLET PO SCH (17:14)
[2022-02-06 20:00] VITALS: BP 144/99
[2022-02-07] VITALS: BP 134/85
[2022-02-07 04:00] VITALS: BP 140/56
[2022-02-07 06:14] LABS: BASOPHILS % 0.8 % (0.0-2.0); EOSINOPHILS % 2.5 % (0.0-5.0); HEMOGLOBIN. 11.6 g/dL (14.0-18.0); LYMPHOCYTES % 27.7 % (20.0-50.0); MEAN CORPUSCULAR HEMOGLOBIN 28.4 pg (28.0-32.0); MEAN CORPUSCULAR VOLUME 88.4 fL (80.0-94.0); MEAN PLATELET VOLUME 9.3 fl (7.4-10.4); MONOCYTES % 10.6 % (2.0-8.0); NEUTROPHILS % 58.4 % (40.0-76.0); PLATELET 216 x1000/uL (130-400); RED BLOOD CELL COUNT 4.08 mill/uL (4.7-6.1); RED CELL DISTRIBUTION WIDTH 17.8 % (11.6-14.6)
[2022-02-07] MEDS: SODIUM CHLORIDE 0.45% 1,000 ML IV SCH ×3 (07:23→21:28)
[2022-02-07 08:00] VITALS: BP 134/96
[2022-02-07] MEDS: PREDNISONE 20MG TABLET PO SCH (09:10)
[2022-02-07] MEDS: AMLODIPINE 5MG TABLET PO SCH (09:11)
[2022-02-07] MEDS: FUROSEMIDE 40MG/4ML VIAL IVP SCH (09:11)
[2022-02-07 12:00] VITALS: BP 124/97
[2022-02-07] MEDS: ENOXAPARIN 40MG/0.4ML SYR SUBCUT SCH (14:59)
[2022-02-07 16:00] VITALS: BP 136/96
[2022-02-07 20:00] VITALS: BP 147/104
[2022-02-08] VITALS: BP 137/97
[2022-02-08 04:00] VITALS: BP 144/102
[2022-02-08 07:29] LABS: BASOPHILS % 0.3 % (0.0-2.0); EOSINOPHILS % 0.4 % (0.0-5.0); HEMATOCRIT. 35.3 % (42.0-52.0); HEMOGLOBIN. 11.5 g/dL (14.0-18.0); LYMPHOCYTES % 24.1 % (20.0-50.0); MEAN CORPUSCULAR HEMOGLOBIN 28.3 pg (28.0-32.0); MEAN CORPUSCULAR VOLUME 86.8 fL (80.0-94.0); MEAN PLATELET VOLUME 9.2 fl (7.4-10.4); MONOCYTES % 8.5 % (2.0-8.0); NEUTROPHILS % 66.7 % (40.0-76.0); PLATELET 201 x1000/uL (130-400); RED BLOOD CELL COUNT 4.07 mill/uL (4.7-6.1); RED CELL DISTRIBUTION WIDTH 18.4 % (11.6-14.6)
[2022-02-08 08:00] VITALS: BP 149/98
[2022-02-08] MEDS: FUROSEMIDE 40MG/4ML VIAL IVP SCH (09:00)
[2022-02-08] MEDS: FERROUS SULFATE 325MG TABLET PO SCH (09:00)
[2022-02-08] MEDS: AMLODIPINE 5MG TABLET PO SCH (09:00)
[2022-02-08] MEDS: PREDNISONE 20MG TABLET PO SCH (09:00)
[2022-02-08 10:52] VITALS: BP 149/98
[2022-02-08 12:00] VITALS: BP 145/100
== END 2022-02-08 14:14 | disposition home or self-care (01) | DRG 190 ==
LOC: ER 06:31 → 7EST 10:56 → EDBEDREQ 11:41 → SUPCPDRO 14:08
PROVIDERS: ADMIT Internal Medicine; ATTEND Internal Medicine
DX: I21.4 Non-ST elevation (NSTEMI) myocardial infarction (principal); J96.01 Acute respiratory failure with hypoxia; I50.23 Acute on chronic systolic (congestive) heart failure; N17.9 Acute kidney failure, unspecified; D64.9 Anemia, unspecified; F14.129 Cocaine abuse with intoxication, unspecified; H52.4 Presbyopia; J45.901 Unspecified asthma with (acute) exacerbation; N18.30 Chronic kidney disease, stage 3 unspecified; N28.1 Cyst of kidney, acquired; Z20.822 Contact with and (suspected) exposure to COVID-19; Z60.2 Problems related to living alone; I73.9 Peripheral vascular disease, unspecified; I16.0 Hypertensive urgency; I13.2 Hypertensive heart and chronic kidney disease with heart failure and with stage 5 chronic kidney disease, or end stage renal disease; N18.6 End stage renal disease; F17.210 Nicotine dependence, cigarettes, uncomplicated; I25.10 Atherosclerotic heart disease of native coronary artery without angina pectoris; Z82.49 Family history of ischemic heart disease and other diseases of the circulatory system; Z86.73 Personal history of transient ischemic attack (TIA), and cerebral infarction without residual deficits; Z79.51 Long term (current) use of inhaled steroids; Z79.899 Other long term (current) drug therapy; Z79.82 Long term (current) use of aspirin; Z71.51 Drug abuse counseling and surveillance of drug abuser
CPT/HCPCS: 36415; 71045; 76770; 80048; 80053; 80305; 80320; 81003; 83735; 83880; 84100; 84484; 85025; 87426; 93005; 99291; J1650; J1940; J2930; J7512; G0480

== ENCOUNTER 2022-03-21 10:23 | Inpatient (IN) | payer MEDICAID ==
[~2022-03-21] VITALS: Ht 170.2 cm; Wt 72.1 kg
[~2022-03-21 10:23] MED LIST changes: -ALBU18HF2 IH; +FERR-63 PO; -P20 MT
[2022-03-21 10:47] LABS: BASOPHILS % 1.1 % (0.0-2.0); EOSINOPHILS % 6.6 % (0.0-5.0); HEMATOCRIT. 39.3 % (42.0-52.0); HEMOGLOBIN. 12.5 g/dL (14.0-18.0); LYMPHOCYTES % 24.2 % (20.0-50.0); MEAN CORPUSCULAR HEMOGLOBIN 28.3 pg (28.0-32.0); MEAN CORPUSCULAR VOLUME 88.9 fL (80.0-94.0); MEAN PLATELET VOLUME 8.4 fl (7.4-10.4); MONOCYTES % 8.6 % (2.0-8.0); NEUTROPHILS % 59.5 % (40.0-76.0); PLATELET 137 x1000/uL (130-400); RED BLOOD CELL COUNT 4.42 mill/uL (4.7-6.1); RED CELL DISTRIBUTION WIDTH 18.3 % (11.6-14.6)
[2022-03-21] MEDS ORDERED: IPRATROPIUM BROMIDE (0.02%) 0.5MG/2.5ML NEB HHN STA (10:52)
[2022-03-21] MEDS ORDERED: METHYLPREDNISOLONE SOD SUCC 125 MG/2 ML VIAL IV STA (10:52)
[2022-03-21 10:59] LABS: CHLORIDE 112 mEq/L (98-107)
[2022-03-21] MEDS ORDERED: ASPIRIN 325MG EC TABLET PO ONE (11:15)
[2022-03-21] MEDS: ALBUTEROL (0.083%) 2.5MG/3ML NEB HHN SCH ×3 (11:22→12:33)
[2022-03-21 14:03] LABS: CLARITY URINE CLEAR (CLEAR); COLOR URINE YELLOW (YELLOW); KETONES URINE TRACE (NEGATIVE); LEUKOCYTE ESTERASE URINE NEGATIVE (NEGATIVE); NITRITE URINE NEGATIVE (NEGATIVE); OCCULT BLOOD URINE NEGATIVE (NEGATIVE); PH URINE 5.5 (4.5-8.0); PROTEIN URINE 2+ (NEGATIVE); UROBILINOGEN URINE 0.2 E.U./dL (0.2-1.0)
[2022-03-21 14:37] LABS: *AMPHETAMINES SCREEN URINE NEGATIVE (NEGATIVE); *BARBITURATES SCREEN URINE NEGATIVE (NEGATIVE); *BENZODIAZEPINES SCREEN URINE NEGATIVE (NEGATIVE); *COCAINE SCREEN URINE PRESUMTIVE POSITIVE (NEGATIVE); CANNABINOID URINE SCREEN PRESUMTIVE POSITIVE (NEGATIVE); METHADONE URINE SCREEN NEGATIVE (NEGATIVE); OPIATES URINE SCREEN NEGATIVE (NEGATIVE); PHENCYCLIDINE URINE SCREEN NEGATIVE (NEGATIVE)
[2022-03-21] MEDS ORDERED: MAGNESIUM/ALUMINUM HYDROXIDE/SIMETHICONE 30ML UDC PO PRN (16:00)
[2022-03-21] MEDS ORDERED: ONDANSETRON HCL 4MG/2ML INJ IV PRN (16:00)
[2022-03-21] MEDS ORDERED: DOCUSATE SODIUM 100MG CAPSULE PO PRN (16:00)
[2022-03-21] MEDS ORDERED: IPRATROPIUM/ALBUTEROL 0.5-3(2.5)MG/3ML NEB NEB PRN (16:00)
[2022-03-21] MEDS ORDERED: CLONIDINE 0.1MG TABLET PO PRN (16:00)
[2022-03-21] MEDS ORDERED: ACETAMINOPHEN 325MG TABLET PO PRN ×2 (16:00)
[2022-03-21] MEDS ORDERED: NITROGLYCERIN 0.4MG TABLET SL SL PRN (16:00)
[2022-03-21] MEDS ORDERED: GUAIFENESIN 200MG/10ML SUGAR FREE UDC PO PRN (16:00)
[2022-03-21] MEDS ORDERED: ZOLPIDEM TARTRATE 5MG TABLET PO PRN (16:00)
[2022-03-21] MEDS ORDERED: KETOROLAC 15MG/ML VIAL IV PRN (16:00)
[2022-03-21] MEDS ORDERED: LEVOFLOXACIN 500MG PREMIX 100 ML IV SCH (17:00)
[2022-03-21] MEDS: ENOXAPARIN 40MG/0.4ML SYR SUBCUT SCH (18:18)
[2022-03-21 20:00] VITALS: BP 134/83
[2022-03-21] MEDS: FAMOTIDINE 20MG TABLET PO SCH (21:07)
[2022-03-21] MEDS: FUROSEMIDE 40MG/4ML VIAL IVP SCH (21:07)
[2022-03-21] MEDS: SPIRONOLACTONE 25MG TABLET PO SCH (21:08)
[2022-03-21] MEDS: IPRATROPIUM/ALBUTEROL 0.5-3(2.5)MG/3ML NEB HHN SCH (21:08)
[2022-03-21] MEDS: METHYLPREDNISOLONE SOD SUCC 125 MG/2 ML VIAL IV SCH (21:55)
[2022-03-22] VITALS: BP_SYST 145; BP_SYST 154; BP_DIAS 80; BP_DIAS 86
[2022-03-22] MEDS: IPRATROPIUM/ALBUTEROL 0.5-3(2.5)MG/3ML NEB HHN SCH ×5 (00:18→16:25)
[2022-03-22 04:00] VITALS: BP 173/119
[2022-03-22 04:25] LABS: CREATINE KINASE MB FRACTION 3.6 ng/mL (0.5-3.6)
[2022-03-22] MEDS: METHYLPREDNISOLONE SOD SUCC 125 MG/2 ML VIAL IV SCH (05:20)
[2022-03-22 07:37] LABS: HEMATOCRIT. 39.1 % (42.0-52.0); HEMOGLOBIN. 12.9 g/dL (14.0-18.0); MEAN CORPUSCULAR HEMOGLOBIN 28.9 pg (28.0-32.0); MEAN CORPUSCULAR VOLUME 87.8 fL (80.0-94.0); MEAN PLATELET VOLUME 9.6 fl (7.4-10.4); PLATELET 150 x1000/uL (130-400); RED BLOOD CELL COUNT 4.45 mill/uL (4.7-6.1); RED CELL DISTRIBUTION WIDTH 18.8 % (11.6-14.6)
[2022-03-22 07:43] LABS: CHLORIDE 108 mEq/L (98-107)
[2022-03-22 07:54] LABS: CREATINE KINASE 101 IU/L (39-308); CREATINE KINASE MB FRACTION 3.6 ng/mL (0.5-3.6); PHOSPHORUS 2.4 mg/dL (2.5-4.9)
[2022-03-22 08:00] VITALS: BP 160/102
[2022-03-22] MEDS: FUROSEMIDE 40MG/4ML VIAL IVP SCH ×2 (08:46→20:29)
[2022-03-22] MEDS: FAMOTIDINE 20MG TABLET PO SCH ×2 (08:47→20:30)
[2022-03-22] MEDS: SPIRONOLACTONE 25MG TABLET PO SCH ×2 (08:47→20:30)
[2022-03-22] MEDS: ASPIRIN 325MG EC TABLET PO SCH (08:47)
[2022-03-22] MEDS: AMLODIPINE 10MG TABLET PO SCH (11:59)
[2022-03-22 12:00] VITALS: BP 133/77
[2022-03-22] MEDS ORDERED: LEVOFLOXACIN 500MG PREMIX 100 ML IV NR (12:00)
[2022-03-22 13:54] LABS: PLATELET ESTIMATE NORMAL
[2022-03-22 16:00] VITALS: BP 146/68
[2022-03-22] MEDS: ENOXAPARIN 40MG/0.4ML SYR SUBCUT SCH (17:29)
[2022-03-22 20:00] VITALS: BP 117/74
[2022-03-22] MEDS ORDERED: METHYLPREDNISOLONE SOD SUCC 125 MG/2 ML VIAL IV SCH (21:00)
[2022-03-23] VITALS: BP 131/77
[2022-03-23 04:00] VITALS: BP 126/88
[2022-03-23 08:00] VITALS: BP 133/101
[2022-03-23] MEDS: FAMOTIDINE 20MG TABLET PO SCH (08:42)
[2022-03-23] MEDS: AMLODIPINE 10MG TABLET PO SCH (08:42)
[2022-03-23] MEDS: SPIRONOLACTONE 25MG TABLET PO SCH (08:42)
[2022-03-23] MEDS: FUROSEMIDE 40MG/4ML VIAL IVP SCH (08:42)
[2022-03-23] MEDS: ASPIRIN 325MG EC TABLET PO SCH (08:42)
[2022-03-23] MEDS ORDERED: METHYLPREDNISOLONE SOD SUCC 40 MG/ML VIAL IV SCH (09:00)
[2022-03-23] MEDS: IPRATROPIUM/ALBUTEROL 0.5-3(2.5)MG/3ML NEB HHN SCH (09:12)
[2022-03-23] MEDS ORDERED: LEVO500T90 MT (09:56)
[2022-03-23] MEDS ORDERED: AMLO5TAB88 PO (09:56)
[2022-03-23] MEDS ORDERED: ALBU6.7H9 INH (09:56)
[2022-03-23] MEDS ORDERED: FURO-151 MT (09:56)
[2022-03-23 10:43] VITALS: BP 133/101
[2022-03-23] MEDS ORDERED: LEVOFLOXACIN 250MG PREMIX 50 ML IV SCH (11:00)
[2022-03-24] MEDS ORDERED: METHYLPREDNISOLONE SOD SUCC 40 MG/ML VIAL IV SCH (09:00)
== END 2022-03-23 13:15 | disposition home or self-care (01) | DRG 816 ==
LOC: ER 10:29 → 8WST 12:49 → EDBEDREQ 13:02 → ENRESERV 15:38 → 8WST 17:49
PROVIDERS: ADMIT Internal Medicine; ATTEND Internal Medicine
DX: T40.5X1A Poisoning by cocaine, accidental (unintentional), initial encounter (principal); J96.01 Acute respiratory failure with hypoxia; N17.0 Acute kidney failure with tubular necrosis; I21.4 Non-ST elevation (NSTEMI) myocardial infarction; E44.1 Mild protein-calorie malnutrition; D72.10 Eosinophilia, unspecified; I24.8 Other forms of acute ischemic heart disease; I42.9 Cardiomyopathy, unspecified; I50.43 Acute on chronic combined systolic (congestive) and diastolic (congestive) heart failure; J68.0 Bronchitis and pneumonitis due to chemicals, gases, fumes and vapors; I13.0 Hypertensive heart and chronic kidney disease with heart failure and stage 1 through stage 4 chronic kidney disease, or unspecified chronic kidney disease; D64.9 Anemia, unspecified; M25.512 Pain in left shoulder; N18.9 Chronic kidney disease, unspecified; F12.10 Cannabis abuse, uncomplicated; F17.210 Nicotine dependence, cigarettes, uncomplicated; Z60.2 Problems related to living alone; Z79.82 Long term (current) use of aspirin; Z79.899 Other long term (current) drug therapy; Z68.24 Body mass index [BMI] 24.0-24.9, adult; Z71.51 Drug abuse counseling and surveillance of drug abuser; Z86.73 Personal history of transient ischemic attack (TIA), and cerebral infarction without residual deficits; Z82.49 Family history of ischemic heart disease and other diseases of the circulatory system; W18.39XA Other fall on same level, initial encounter; Y93.89 Activity, other specified; Y99.8 Other external cause status; Y92.098 Other place in other non-institutional residence as the place of occurrence of the external cause
CPT/HCPCS: 36415; 71045; 80053; 80305; 81003; 82550; 82553; 83036; 83735; 83880; 84100; 84484; 85025; 93005; 93970; 94640; 99285; J1650; J1885; J1940; J1956; J2920; J2930

== ENCOUNTER 2022-04-17 13:35 | Emergency (ER) | payer MEDICAID ==
[~2022-04-17] VITALS: Ht 185.4 cm; Wt 77.0 kg
[~2022-04-17 13:35] MED LIST changes: -AMLO5TAB88 PO; +CARV6.2548 MT; -FURO-151 MT
[2022-04-17] MEDS ORDERED: ASPIRIN 81MG TABLET PO ONE (15:00)
[2022-04-17 15:26] LABS: BASOPHILS % 0.5 % (0.0-2.0); EOSINOPHILS % 1.7 % (0.0-5.0); HEMATOCRIT. 41.8 % (42.0-52.0); HEMOGLOBIN. 13.7 g/dL (14.0-18.0); LYMPHOCYTES % 11.5 % (20.0-50.0); MEAN CORPUSCULAR HEMOGLOBIN 29.5 pg (28.0-32.0); MEAN CORPUSCULAR VOLUME 90.1 fL (80.0-94.0); MEAN PLATELET VOLUME 9.7 fl (7.4-10.4); MONOCYTES % 7.9 % (2.0-8.0); NEUTROPHILS % 78.4 % (40.0-76.0); PLATELET 194 x1000/uL (130-400); RED BLOOD CELL COUNT 4.65 mill/uL (4.7-6.1); RED CELL DISTRIBUTION WIDTH 18.8 % (11.6-14.6)
[2022-04-17 15:30] LABS: CHLORIDE 106 mEq/L (98-107)
[2022-04-17 15:41] LABS: ETHANOL BLOOD < 10 mg/dL
[2022-04-17] MEDS ORDERED: ACETAMINOPHEN 325MG TABLET PO ONE (16:00)
[2022-04-17 16:54] LABS: CLARITY URINE CLEAR (CLEAR); COLOR URINE YELLOW (YELLOW); KETONES URINE TRACE (NEGATIVE); LEUKOCYTE ESTERASE URINE NEGATIVE (NEGATIVE); NITRITE URINE NEGATIVE (NEGATIVE); OCCULT BLOOD URINE NEGATIVE (NEGATIVE); PH URINE 6.5 (4.5-8.0); PROTEIN URINE 1+ (NEGATIVE); SPECIFIC GRAVITY URINE 1.015 (1.005-1.030); UROBILINOGEN URINE 0.2 E.U./dL (0.2-1.0)
[2022-04-17 20:00] VITALS: BP 142/94
[2022-04-23] MEDS ORDERED: AZIT500T8 MT (11:07)
== END 2022-04-17 22:27 | disposition home or self-care (01) ==
LOC: ER 13:46
DX: U07.1 COVID-19 (principal); R07.89 Other chest pain; K92.1 Melena; I11.0 Hypertensive heart disease with heart failure; I50.9 Heart failure, unspecified; I69.954 Hemiplegia and hemiparesis following unspecified cerebrovascular disease affecting left non-dominant side; I25.2 Old myocardial infarction; J44.9 Chronic obstructive pulmonary disease, unspecified; Z79.899 Other long term (current) drug therapy; Z79.52 Long term (current) use of systemic steroids
CPT/HCPCS: 36415; 71045; 80053; 80320; 81003; 83605; 83690; 83880; 84484; 85025; 87426; 93005; 99285; C9803; Z7610; G0480

== ENCOUNTER 2022-06-27 12:47 | Inpatient (IN) | payer MEDICAID ==
[2022-06-27] VITALS: BP 157/111
[~2022-06-27] VITALS: Ht 185.4 cm; Wt 71.7 kg
[~2022-06-27 12:47] MED LIST changes: +AZIT500T8 MT
[2022-06-27] MEDS ORDERED: ASPIRIN 325MG EC TABLET PO ONE (14:00)
[2022-06-27] MEDS ORDERED: MORPHINE SULFATE 4 MG/ML CPJ (NOT FOR IM USE) IV ONE (14:00)
[2022-06-27 14:12] LABS: BASOPHILS % 0.6 % (0.0-2.0); EOSINOPHILS % 3.3 % (0.0-5.0); HEMATOCRIT. 36.6 % (42.0-52.0); HEMOGLOBIN. 12.2 g/dL (14.0-18.0); MEAN CORPUSCULAR HEMOGLOBIN 30.2 pg (28.0-32.0); MEAN CORPUSCULAR VOLUME 90.8 fL (80.0-94.0); MEAN PLATELET VOLUME 9.7 fl (7.4-10.4); MONOCYTES % 6.1 % (2.0-8.0); PLATELET 143 x1000/uL (130-400); RED BLOOD CELL COUNT 4.03 mill/uL (4.7-6.1); RED CELL DISTRIBUTION WIDTH 18.5 % (11.6-14.6)
[2022-06-27 14:13] LABS: CHLORIDE 108 mEq/L (98-107)
[2022-06-27 14:24] LABS: ETHANOL BLOOD < 10 mg/dL
[2022-06-27] MEDS ORDERED: NITROGLYCERIN OINT 1GM/INCH UDPKT TD SCH (14:45)
[2022-06-27] MEDS ORDERED: FUROSEMIDE 40MG/4ML VIAL IVP SCH (14:45)
[2022-06-27] MEDS ORDERED: ASPIRIN 325MG EC TABLET PO SCH (15:00)
[2022-06-27] MEDS ORDERED: METOCLOPRAMIDE HCL 10MG/2ML VIAL IV ONE (16:45)
[2022-06-27 17:03] LABS: *AMPHETAMINES SCREEN URINE NEGATIVE (NEGATIVE); *BARBITURATES SCREEN URINE NEGATIVE (NEGATIVE); *BENZODIAZEPINES SCREEN URINE NEGATIVE (NEGATIVE); *COCAINE SCREEN URINE PRESUMTIVE POSITIVE (NEGATIVE); CANNABINOID URINE SCREEN NEGATIVE (NEGATIVE); METHADONE URINE SCREEN NEGATIVE (NEGATIVE); OPIATES URINE SCREEN PRESUMTIVE POSITIVE (NEGATIVE); PHENCYCLIDINE URINE SCREEN NEGATIVE (NEGATIVE)
[2022-06-27] MEDS ORDERED: MORPHINE SULFATE 4 MG/ML CPJ (NOT FOR IM USE) IV PRN (22:00)
[2022-06-27] MEDS ORDERED: HYDRALAZINE 20MG/ML VIAL IV PRN (22:00)
[2022-06-27 22:40] VITALS: BP 164/115
[2022-06-28] MEDS ORDERED: ONDANSETRON HCL 4MG/2ML INJ IV PRN (00:15)
[2022-06-28] MEDS ORDERED: ACETAMINOPHEN 325MG TABLET PO PRN ×2 (00:15)
[2022-06-28] MEDS ORDERED: GUAIFENESIN 200MG/10ML SUGAR FREE UDC PO PRN ×2 (00:15)
[2022-06-28] MEDS ORDERED: IPRATROPIUM/ALBUTEROL 0.5-3(2.5)MG/3ML NEB HHN PRN (00:15)
[2022-06-28] MEDS ORDERED: ZOLPIDEM TARTRATE 5MG TABLET PO PRN (00:15)
[2022-06-28] MEDS ORDERED: MAGNESIUM/ALUMINUM HYDROXIDE/SIMETHICONE 30ML UDC PO PRN (00:15)
[2022-06-28] MEDS ORDERED: HYDRALAZINE 20MG/ML VIAL IV PRN (00:15)
[2022-06-28] MEDS ORDERED: DIPHENHYDRAMINE 50MG/ML VIAL IV PRN (00:15)
[2022-06-28] MEDS ORDERED: KETOROLAC 30MG/ML VIAL IV PRN (00:15)
[2022-06-28] MEDS ORDERED: CLONIDINE 0.1MG TABLET PO PRN (00:15)
[2022-06-28] MEDS ORDERED: NALOXONE HCL 0.4MG/ML VIAL IV PRN (00:30)
[2022-06-28 04:00] VITALS: BP 140/97
[2022-06-28] MEDS: SODIUM CHLORIDE 0.9% INJ 3ML FLUSH IVF SCH ×3 (05:03→21:09)
[2022-06-28 08:30] VITALS: BP 106/58
[2022-06-28] MEDS: ASPIRIN 81MG EC TABLET PO SCH (09:00)
[2022-06-28] MEDS: AMLODIPINE 5MG TABLET PO SCH ×2 (09:00→21:08)
[2022-06-28] MEDS ORDERED: BUDESONIDE 0.5MG/2ML NEB HHN SCH (09:00)
[2022-06-28] MEDS ORDERED: FUROSEMIDE 40MG/4ML VIAL IVP SCH (09:00)
[2022-06-28] MEDS: FUROSEMIDE 40MG/4ML VIAL IVP SCH ×2 (09:01→16:37)
[2022-06-28] MEDS: LEVETIRACETAM 500MG TABLET PO SCH ×2 (09:01→21:08)
[2022-06-28] MEDS: ENOXAPARIN 40MG/0.4ML SYR SUBCUT SCH (09:02)
[2022-06-28] MEDS: CLONIDINE 0.1MG TABLET PO SCH ×2 (10:37→17:07)
[2022-06-28 10:39] VITALS: BP 131/98
[2022-06-28 11:20] LABS: BASOPHILS % 0.9 % (0.0-2.0); EOSINOPHILS % 4.7 % (0.0-5.0); HEMATOCRIT. 39.3 % (42.0-52.0); LYMPHOCYTES % 27.3 % (20.0-50.0); MEAN CORPUSCULAR HEMOGLOBIN 30.1 pg (28.0-32.0); MEAN CORPUSCULAR VOLUME 90.9 fL (80.0-94.0); MONOCYTES % 7.2 % (2.0-8.0); NEUTROPHILS % 59.9 % (40.0-76.0); PLATELET 126 x1000/uL (130-400); RED BLOOD CELL COUNT 4.33 mill/uL (4.7-6.1); RED CELL DISTRIBUTION WIDTH 17.8 % (11.6-14.6)
[2022-06-28 11:25] LABS: CHLORIDE 104 mEq/L (98-107)
[2022-06-28 12:00] VITALS: BP 137/95
[2022-06-28 16:14] VITALS: BP 101/77
[2022-06-28 20:00] VITALS: BP 119/70
[2022-06-28] MEDS ORDERED: ATORVASTATIN CALCIUM 40MG TABLET PO SCH (21:00)
[2022-06-28] MEDS: POTASSIUM CHLORIDE 20MEQ TABLET SR PO SCH (22:43)
[2022-06-29] VITALS: BP 126/96
[2022-06-29] MEDS: CLONIDINE 0.1MG TABLET PO SCH ×2 (01:57→12:14)
[2022-06-29 04:00] VITALS: BP 129/87
[2022-06-29] MEDS: FUROSEMIDE 40MG/4ML VIAL IVP SCH (06:16)
[2022-06-29] MEDS: SODIUM CHLORIDE 0.9% INJ 3ML FLUSH IVF SCH ×2 (06:16→16:32)
[2022-06-29 08:30] VITALS: BP 143/108
[2022-06-29 08:30] LABS: BASOPHILS % 1.1 % (0.0-2.0); EOSINOPHILS % 5.5 % (0.0-5.0); HEMATOCRIT. 42.4 % (42.0-52.0); HEMOGLOBIN. 14.1 g/dL (14.0-18.0); LYMPHOCYTES % 35.8 % (20.0-50.0); MEAN CORPUSCULAR HEMOGLOBIN 30.3 pg (28.0-32.0); MEAN CORPUSCULAR VOLUME 91.1 fL (80.0-94.0); MEAN PLATELET VOLUME 9.4 fl (7.4-10.4); MONOCYTES % 8.3 % (2.0-8.0); NEUTROPHILS % 49.3 % (40.0-76.0); PLATELET 146 x1000/uL (130-400); RED BLOOD CELL COUNT 4.65 mill/uL (4.7-6.1)
[2022-06-29] MEDS: AMLODIPINE 5MG TABLET PO SCH (09:32)
[2022-06-29] MEDS: LEVETIRACETAM 500MG TABLET PO SCH (09:32)
[2022-06-29] MEDS: POTASSIUM CHLORIDE 20MEQ TABLET SR PO SCH (09:32)
[2022-06-29] MEDS: ASPIRIN 81MG EC TABLET PO SCH (09:32)
[2022-06-29] MEDS: ENOXAPARIN 40MG/0.4ML SYR SUBCUT SCH (09:33)
[2022-06-29 12:16] VITALS: BP 130/84
[2022-06-29 15:13] VITALS: BP 130/84
== END 2022-06-29 18:46 | disposition home or self-care (01) | DRG 190 ==
LOC: ER 12:47 → 6WST 16:25 → EDBEDREQ 16:47 → EDBEDREQTM 16:47 → ENRESERV 22:01
PROVIDERS: ADMIT Internal Medicine; ATTEND Internal Medicine
DX: I21.4 Non-ST elevation (NSTEMI) myocardial infarction (principal); I50.23 Acute on chronic systolic (congestive) heart failure; I42.8 Other cardiomyopathies; I44.1 Atrioventricular block, second degree; I13.0 Hypertensive heart and chronic kidney disease with heart failure and stage 1 through stage 4 chronic kidney disease, or unspecified chronic kidney disease; G40.909 Epilepsy, unspecified, not intractable, without status epilepticus; J44.9 Chronic obstructive pulmonary disease, unspecified; T42.76XA Underdosing of unspecified antiepileptic and sedative-hypnotic drugs, initial encounter; I73.9 Peripheral vascular disease, unspecified; E78.5 Hyperlipidemia, unspecified; F14.10 Cocaine abuse, uncomplicated; F11.10 Opioid abuse, uncomplicated; N18.9 Chronic kidney disease, unspecified; F17.210 Nicotine dependence, cigarettes, uncomplicated; T45.516A Underdosing of anticoagulants, initial encounter; Y92.89 Other specified places as the place of occurrence of the external cause; Z82.49 Family history of ischemic heart disease and other diseases of the circulatory system; I69.30 Unspecified sequelae of cerebral infarction; Z91.14 Patient's other noncompliance with medication regimen; I25.2 Old myocardial infarction; Z79.82 Long term (current) use of aspirin; Z71.51 Drug abuse counseling and surveillance of drug abuser
CPT/HCPCS: 36415; 71045; 80048; 80053; 80305; 80320; 82962; 83735; 83880; 84484; 85025; 93005; 94640; 99285; J0360; J1650; J1940; J2270; J2765; J7626; G0480

== ENCOUNTER 2022-07-16 19:34 | Emergency (ER) | payer MEDICAID ==
[~2022-07-16] VITALS: Ht 180.3 cm; Wt 76.0 kg
[~2022-07-16 19:34] MED LIST changes: +ALBU6.7H3 INH; -ALBU6.7H9 INH
[2022-07-16] MEDS ORDERED: TETANUS, DIPHTHERIA, PERTUSSIS VAC/PF 0.5ML (>10YR OLD) IM ONE (20:45)
[2022-07-16] MEDS ORDERED: LIDOCAINE HCL 1% 20ML VIAL (Pyxis) INJ INFIL ONE (20:45)
[2022-07-16 21:43] LABS: BASOPHILS % 0.6 % (0.0-2.0); EOSINOPHILS % 5.4 % (0.0-5.0); HEMATOCRIT. 31.5 % (42.0-52.0); HEMOGLOBIN. 10.7 g/dL (14.0-18.0); LYMPHOCYTES % 28.6 % (20.0-50.0); MEAN CORPUSCULAR HEMOGLOBIN 31.6 pg (28.0-32.0); MEAN CORPUSCULAR VOLUME 93.2 fL (80.0-94.0); MEAN PLATELET VOLUME 9.8 fl (7.4-10.4); MONOCYTES % 11.2 % (2.0-8.0); NEUTROPHILS % 54.2 % (40.0-76.0); PLATELET 133 x1000/uL (130-400); RED BLOOD CELL COUNT 3.38 mill/uL (4.7-6.1); RED CELL DISTRIBUTION WIDTH 17.3 % (11.6-14.6)
[2022-07-17 00:15] VITALS: BP 112/71
[2022-07-17] MEDS ORDERED: SODIUM CHLORIDE 0.9% 1,000 ML IV ONE (00:15)
== END 2022-07-17 00:53 | disposition short-term general hospital (02) ==
LOC: ER 19:34
DX: S61.511A Laceration without foreign body of right wrist, initial encounter (principal); D62 Acute posthemorrhagic anemia; X58.XXXA Exposure to other specified factors, initial encounter; Y93.89 Activity, other specified; Y92.89 Other specified places as the place of occurrence of the external cause; Y99.8 Other external cause status
CPT/HCPCS: 12002; 36415; 73110; 80048; 85025; 99284; Z7610

== ENCOUNTER 2022-07-30 12:19 | Emergency (ER) | payer MEDICAID | END 2022-07-30 13:04 | disposition left against medical advice (07) | LOC: ER 12:50 | DX: Z53.21 Procedure and treatment not carried out due to patient leaving prior to being seen by health care provider (principal) ==